=== PATIENT | male | born 2000 | race Caucasian/White ===

== ENCOUNTER 2022-12-20 14:14 | Emergency (ER) | payer OTHER, SELFPAY ==
[2022-12-20 14:15] VITALS: BP 124/74; PULSE 79; RESP 16; TEMP 37.1; O2SAT 98; BMI 18.2
--- NOTE | 2022-12-20 16:09 | EX.ED.UPPERE ---
HPI History of Present Illness Chief Complaint: Upper Extremity Injury Informant: patient Onset/Context/Timing Onset: Days (2-3) Context: Gradual Onset Timing: Continuous Quality of Pain: - (sore) Location: L middle finger Current Severity: Mild Maximum Severity: Mild Worsened by: palpation, using finger Relieved by: leaving alone Associated Symptoms Associated Symptoms: Negative for Parasthesia, Weakness or Loss of Funtion Narrative Narrative: 22-year-old healthy male ambidextrous, he bites his nails frequently. He has developed a painful swollen red area on the side of his left middle finger for which she presents here. No fevers or chills no discharge. No treatment prior to now. PFSH PFSH no medical history Home Medications cephalexin 500 mg capsule 500 mg PO Q6 #28 CAPSULES 12/20/22 [Rx Last Taken Unknown] Allergy/AdvReac Type Severity Reaction Status Date / Time No Known Allergies Allergy Unverified 09/17/19 10:15 Social History Smoking Status: Never smoker alcohol intake: never ROS ROS ED Constitutional Constitutional ED: Denies chills or fever(s) Musculoskeletal Musculoskeletal: Reports extremity pain; Denies neck pain Integumentary Denies Abrasions, rash or wounds Neurologic Neurologic: Denies paresthesias or weakness EXAM Physical Exam Const Vital Signs: 12/20/22 14:15 Temperature 98.8 F Temperature Source Temporal Pulse Rate 79 Respiratory Rate 16 Blood Pressure 124/74 H Blood Pressure Mean 90 Pulse Ox 98 Oxygen Delivery Method Room Air Positive well nourished and well developed General Appearance ED: well developed and NAD Neck full ROM and supple Back/Spine normal ROM and normal to inspection Extremity full ROM Extremity Narrative: Mildly tender paronychia at the ulnar aspect of the left middle finger. There is no involvement of the pad of the finger, nor the radial side. The fingernail is normal. Except for the fact that it has been bitten down to the beginning of the nailbed by the patient as have the rest of his nails. There is no fluctuance or abscess or pointing. Neuro oriented x3, no focal motor deficits and no sensory deficits noted Sensorium / Orientation: alert Psych mental status grossly normal and thought process normal Skin no wounds Rashes: no rashes MDM MDM MDM Narrative Medical decision making narrative: This patient has a paronychia likely from biting his nails, but it does not appear to be abscessed at this time, and I do not think performing I&D is necessarily going to be beneficial. For that reason, I am advising warm soapy soaks and I placed him on a week of cephalexin, we discussed reasons to return. Also counseled on discontinuing biting his nails. Discharge Plan Triage Chief Complaint: Upper Extremity Injury ED Provider: Migel Roldan Dx/Rx/DC Orders Clinical Impression: Paronychia of left middle finger Instructions: ED Paronychia of the Finger or Toe Prescriptions: New cephalexin [cephalexin] 500 mg capsule 500 mg PO Q6 Qty: 28 0RF Primary Care Provider: Chantal Guzman Referrals: Chantal Guzman MD [Primary Care Provider] - Doctor,Your [Non-Staff] - 1 Week if not improving Activity Restrictions/Additional Instructions: Warm/hot soapy soaks for 15 minutes at a time, twice daily at least until better. Disposition Disposition: Home, Self Care Discharge Date/Time: 12/20/22 16:18
== END 2022-12-20 16:18 | disposition home or self-care (01) ==
PROVIDERS: Emergency Provider Emergency Medicine; PCP Pediatrics; Visit Provider Emergency Medicine
DX: L03.012 Cellulitis of left finger (principal)
CPT/HCPCS: 99282

== ENCOUNTER 2024-04-22 11:17 | Emergency (ER) | payer BC, SELFPAY ==
[2024-04-22 11:17] VITALS: BP 140/78; PULSE 59; RESP 19; TEMP 35.9; O2SAT 98; BMI 16.2
--- NOTE | 2024-04-22 11:29 | CT_ITS ---
HISTORY: Abdominal pain. TECHNIQUE: Helically acquired images were obtained of the abdomen and pelvis without oral or IV contrast. A radiation dose optimization technique was used for this scan. 399 images. COMPARISON: None. FINDINGS: LOWER CHEST: Lung bases clear. BOWEL: Bowel including appendix nondilated. No focal pericolonic inflammatory change. PERITONEUM: No significant free fluid. LIVER: Unremarkable. GALLBLADDER/BILIARY TREE: Gallbladder present. SPLEEN/PANCREAS/ADRENAL GLANDS: Nonenlarged. KIDNEYS AND URETERS: No nephrolithiasis or obstructing ureteral calculus. VESSELS: Abdominal aorta nondilated. PELVIC ORGANS: Unremarkable. BONES: Intact. CT/Abdomen/Pelvis without Cont IMPRESSION: No acute abnormality identified. Electronically Signed: Lynnette Mccloud MD at 12:15 EDT ,
--- NOTE | 2024-04-22 11:30 | EDS_ITS ---
HPI <Dr. Seda Rucker MD - Last Filed: 04/22/24 16:40> History of Present Illness Chief Complaint: Abd Pain Informant: patient Onset/Context/Timing Onset: Days (3 days) Context: Sudden Onset Current Severity: Moderate Maximum Severity: Severe Narrative Narrative: Patient presents with 3 days of left mid abdominal pain. He states that right hit him rather abruptly 3 days ago and he has had continued pain with nausea, vomiting, and diarrhea. He has not noted blood associated with his vomitus or diarrhea. He denies urinary symptoms. Denies personal history of kidney stone or ulcer. No prior abdominal surgeries. [facility] <Dr. Seda Rucker MD - Last Filed: 04/22/24 16:40> [facility] Medical History no medical history no medical history Home Medications ?Medication ?Instructions ?Recorded ?Last Taken ?Type promethazine 25 mg tablet 25 mg PO TID PRN nausea and 04/22/24 Unknown Rx vomiting #14 tabs Allergy/AdvReac Type Severity Reaction Status Date / Time No Known Allergies Allergy Verified 04/22/24 11:45 Surgical History no surgical history Social History Smoking Status: Never smoker alcohol intake: never ROS <Dr. Seda Rucker MD - Last Filed: 04/22/24 16:40> ROS ED Constitutional Constitutional ED: Denies chills or fever(s) Eyes Eyes: Denies discharge from eye(s) ENT ENT ED: Denies discharge from eye(s), rhinorrhea or sore throat Cardiovascular Cardiovascular: Denies chest pain or palpitations Respiratory/Chest Respiratory/Chest: Denies cough or dyspnea Gastrointestinal Gastrointestinal: Reports abdominal pain, diarrhea, nausea and vomiting Genitourinary Genitourinary ED: Denies difficulty urinating, dysuria or hematuria Musculoskeletal Musculoskeletal: Denies back pain or extremity pain Integumentary Denies Abrasions or rash Neurologic Neurologic: Denies headache(s) or weakness Allergic/Immunologic Allergic/Immunologic ED: Denies lip swelling or urticaria EXAM <Dr. Seda Rucker MD - Last Filed: 04/22/24 16:40> Physical Exam Const Vital Signs: 04/22/24 11:17 04/22/24 13:17 04/22/24 15:03 Temperature 96.7 F L Temperature Source Temporal Pulse Rate 59 L 63 62 Respiratory Rate 19 H 18 Blood Pressure 140/78 H 107/89 H Blood Pressure Mean 98 95 Pulse Ox 98 97 Oxygen Delivery Method Room Air Room Air 04/22/24 17:00 Temperature Temperature Source Pulse Rate 65 Respiratory Rate 16 Blood Pressure 108/84 H Blood Pressure Mean 92 Pulse Ox 98 Oxygen Delivery Method Room Air Positive well nourished and well developed General Appearance ED: well developed HEENT Reports dry mucous membranes Mouth ED: Yes dry mucous membranes Mouth: dry mucous membranes Eyes EOMs intact bilaterally Chest Wall inspection of chest normal and palpation of chest normal Resp normal respiratory effort and clear to auscultation bilaterally Cardio regular rate and regular rhythm GI GI Narrative: Abdomen soft with moderate diffuse tenderness outpatient. No guarding or rebound. Hypoactive bowel sounds. Extremity normal to inspection Neuro oriented x3 Psych Mood & Affect: anxious Skin no rashes or lesions noted <Dr. Nazario Rivers DO - Last Filed: 04/22/24 19:33> Physical Exam Const Vital Signs: 04/22/24 11:17 04/22/24 13:17 04/22/24 15:03 Temperature 96.7 F L Temperature Source Temporal Pulse Rate 59 L 63 62 Respiratory Rate 19 H 18 Blood Pressure 140/78 H 107/89 H Blood Pressure Mean 98 95 Pulse Ox 98 97 Oxygen Delivery Method Room Air Room Air 04/22/24 17:00 Temperature Temperature Source Pulse Rate 65 Respiratory Rate 16 Blood Pressure 108/84 H Blood Pressure Mean 92 Pulse Ox 98 Oxygen Delivery Method Room Air MDM <Dr. Seda Rucker MD - Last Filed: 04/22/24 16:40> [facility] MDM Narrative Medical decision making narrative: IV line established. Patient given IV fluids along with morphine, Toradol, Zofran. Labwork obtained to evaluate for leukocytosis, anemia, and electrolyte derangement. Urinalysis obtained to evaluate for infection/hematuria. CT flank obtained to evaluate for potential perforated viscus, kidney stone, colitis. History & Record Review Discussion w/independent historian: Patient and Family Lab Data Attestation: I reviewed the patient's lab results. Labs: Laboratory Results - last 24 hr 04/22/24 04/22/24 11:40 13:15 WBC 10.5 RBC 5.00 Hgb 14.9 Hct 43.4 MCV 86.8 MCH 29.8 MCHC 34.3 RDW Std Deviation 41.6 RDW Coeff of Lanette 13.2 Plt Count 267 MPV 9.7 Immature Gran % (Auto) 0.400 Neut % (Auto) 82.2 H Lymph % (Auto) 11.3 L [place] % (Auto) 5.6 Eos % (Auto) 0.1 Baso % (Auto) 0.4 Absolute Neuts (auto) 8.7 H Absolute Lymphs (auto) 1.19 Nucleated RBC % 0 Sodium 137 Potassium 3.2 L Chloride 103 Carbon Dioxide 22.0 Anion Gap 12 BUN 15 Creatinine 0.99 Estim Creat Clear Calc 88.14 Est GFR (MDRD) Af Amer 121 Est GFR (MDRD) Non-Af 100 BUN/Creatinine Ratio 15.1 Glucose 107 H Calcium 9.4 Total Bilirubin 2.00 H Direct Bilirubin 0.43 H AST 16 ALT 33 Alkaline Phosphatase 67 Total Protein 7.8 Albumin 4.8 Globulin 3.0 Lipase 31 Urine Color Yellow Urine Clarity Clear Urine pH 6.5 Ur Specific Kevil 1.020 Urine Protein Negative Urine Glucose (UA) Normal Urine Ketones 150 A* Urine Occult Blood Negative Urine Nitrite Negative Urine Bilirubin Negative Urine Urobilinogen 1 H Ur Leukocyte Esterase Negative Urine RBC 0 SEEN Urine WBC 0 SEEN Ur Squamous Epith Cells 0 SEEN Urine Bacteria 0 SEEN Urine Mucus 0 SEEN Radiography Diagnostic Testing: Clinical Impression(s) from Imaging Studies Abdomen/Pelvis CT 04/22/24 11:29 IMPRESSION: No acute abnormality identified. Electronically Signed: Lynnette Mccloud MD at 12:15 EDT Reading Location ID and State: [facility] / [place] Tel , Service support , Treatment and Re-Evaluation :: CBC reveals normal white count of 10.5 with a left shift of 82% neutrophils. Hemoglobin is normal at 14.9. Chemistry studies reveal slightly low potassium at 3.2 with a glucose of 107. LFTs significant for a slightly elevated bilirubin at 2.0 with direct bilirubin at 0.43. Lipase is normal at 31. Urinalysis reveals 150 ketones with no evidence of infection or hematuria. CT of the abdomen/pelvis has been obtained and results are pending at this time. <Dr. Nazario Rivers, DO - Last Filed: 04/22/24 19:33> MDM MDM Narrative Medical decision making narrative: IV line established. Patient given IV fluids along with morphine, Toradol, Zofran. Labwork obtained to evaluate for leukocytosis, anemia, and electrolyte derangement. Urinalysis obtained to evaluate for infection/hematuria. CT flank obtained to evaluate for potential perforated viscus, kidney stone, colitis. D ue to radiology downtime patient was here for several hours waiting for CT read. Ultimately came back negative after 7 PM. He was able to pass a p.o. challenge. He states that he has Zofran at the pharmacy and never picked this up from his previous hospital visit. I will also write him for Phenergan via meds to beds and he can alternate these. He is counseled on sipping small amounts of fluids frequently. He should try clears first and advance to solids as tolerated. Return precautions were discussed. Impression: 1. Abdominal pain 2. Nausea/vomiting Lab Data Labs: Laboratory Results - last 24 hr 04/22/24 04/22/24 11:40 13:15 WBC 10.5 RBC 5.00 Hgb 14.9 Hct 43.4 MCV 86.8 MCH 29.8 MCHC 34.3 RDW Std Deviation 41.6 RDW Coeff of Lanette 13.2 Plt Count 267 MPV 9.7 Immature Gran % (Auto) 0.400 Neut % (Auto) 82.2 H Lymph % (Auto) 11.3 L [place] % (Auto) 5.6 Eos % (Auto) 0.1 Baso % (Auto) 0.4 Absolute Neuts (auto) 8.7 H Absolute Lymphs (auto) 1.19 Nucleated RBC % 0 Sodium 137 Potassium 3.2 L Chloride 103 Carbon Dioxide 22.0 Anion Gap 12 BUN 15 Creatinine 0.99 Estim Creat Clear Calc 88.14 Est GFR (MDRD) Af Amer 121 Est GFR (MDRD) Non-Af 100 BUN/Creatinine Ratio 15.1 Glucose 107 H Calcium 9.4 Total Bilirubin 2.00 H Direct Bilirubin 0.43 H AST 16 ALT 33 Alkaline Phosphatase 67 Total Protein 7.8 Albumin 4.8 Globulin 3.0 Lipase 31 Urine Color Yellow Urine Clarity Clear Urine pH 6.5 Ur Specific Kevil 1.020 Urine Protein Negative Urine Glucose (UA) Normal Urine Ketones 150 A* Urine Occult Blood Negative Urine Nitrite Negative Urine Bilirubin Negative Urine Urobilinogen 1 H Ur Leukocyte Esterase Negative Urine RBC 0 SEEN Urine WBC 0 SEEN Ur Squamous Epith Cells 0 SEEN Urine Bacteria 0 SEEN Urine Mucus 0 SEEN Radiography Diagnostic Testing: Clinical Impression(s) from Imaging Studies Abdomen/Pelvis CT 04/22/24 11:29 IMPRESSION: No acute abnormality identified. Electronically Signed: Lynnette Mccloud MD at 12:15 EDT Reading Location ID and State: [facility] / [place] Tel , Service support , Discharge Plan Triage Chief Complaint: Abd Pain ED Provider: Seda Rucker Dx/Rx/DC Orders Instructions: ED Diet Vomiting Diarrhea, ED Abdominal Pain Unkn Cause Male... Prescriptions: New promethazine 25 mg tablet 25 mg PO TID PRN (Reason: nausea and vomiting) Qty: 14 0RF Primary Care Provider: Care Physician,No Primary Referrals: Chantal Guzman MD [Non-Staff] - Print Language: Moroccan Disposition Disposition: Home, Self Care
[2024-04-22] MEDS: Ondansetron 4 MG/2 ML Vial IV (11:42)
[2024-04-22] MEDS: Ketorolac 15 MG/ML Vial IV (11:43)
[2024-04-22 11:45] LABS: Absolute Lymphocyte Count 1.19 X10^3/uL (0.83-4.51); Absolute Neutrophil Count 8.7 X10^3/uL (2.0-7.7); Basophil# 0.04 X10^3/uL; Basophil% 0.4 % (0-1); Eosinophil# 0.01 X10^3/uL; Eosinophils% 0.1 % (0-5); Hematocrit 43.4 % (40-54); Hemoglobin 14.9 g/dL (13.0-16.5); Lymphocyte # 1.19 X10^3/ul (0.83-4.51); Lymphocyte % 11.3 % (19-41); Mean Corp Hgb Conc 34.3 g/dL (32-36); Mean Corpuscular Hgb 29.8 pg (27.0-32.0); Mean Corpuscular Volume 86.8 fL (80-94); Mean Platelet Vol. 9.7 fl (6.2-12.0); Monocyte# 0.59 X10^3/uL; Monocyte% 5.6 % (0-10); NRBC Flagged by Analyzer 0 % (0-5); Neutrophil # 8.66 X10^3/uL (2.7-7.7); Neutrophil % 82.2 % (47-70); Platelet Count 267 K/mm3 (150-450); RBC Distribution Width CV 13.2 % (11.6-14.6); RBC Distribution Width SD 41.6 fl (35.1-43.9); White Blood Count 10.5 K/mm3 (4.4-11.0)
[2024-04-22] MEDS: 0.9% Normal Saline (1000mL) 1,000 ML 1000 ML IV (11:50)
[2024-04-22 12:01] LABS: AST(SGOT) 16 U/L (15-37); Alanine Aminotransfer ALT/SGPT 33 U/L (16-61); Albumin, Serum 4.8 g/dL (3.2-5.0); Alkaline Phosphatase 67 U/L (45-117); Anion Gap 12 (5-15); BUN 15 mg/dL (7-18); BUN/Creat Ratio 15.1 RATIO (10-20); Bilirubin, Direct 0.43 mg/dL (0.00-0.30); Calcium,Total 9.4 mg/dL (8.5-10.1); Chloride 103 mmol/L (98-107); Creatinine, Serum 0.99 mg/dL (0.70-1.30); EST Glomerular Filtration Rate 100 mL/min (>60); Est Glom Filt Rate - Afr Amer 121 mL/min (>60); Estimated Creatinine Clearance 88.14 ml/min; Glucose 107 mg/dL (74-106); Lipase 31 U/L (13-75); Potassium 3.2 mmol/L (3.5-5.1); Protein, Total 7.8 g/dL (6.4-8.2); Sodium Level 137 mmol/L (136-145)
[2024-04-22] MEDS: 0.9% Normal Saline (1000mL) 1,000 ML 150 ML IV (12:50)
[2024-04-22 13:17] VITALS: BP 107/89; PULSE 63; RESP 18; O2SAT 97
[2024-04-22 13:21] LABS: Bacteria 0 SEEN /hpf (None Seen); Mucous, Urine 0 SEEN /hpf (<or=2+); Red Blood Cells-Urine 0 SEEN /hpf (0-5); Squamous Epithelial Cells - UA 0 SEEN /hpf (0-5); White Blood Cells 0 SEEN /hpf (0-5)
[2024-04-22 13:24] LABS: Color, Urine Yellow (Yellow); Glucose, Dipstick Normal (Normal); Leukocyte Esterase-Dipstick Negative /ul (Negative); Nitrite-Dipstick Negative (Negative); Occult Blood-Urine Negative /ul (Negative); Protein-Dipstick Negative (Negative); Urine Bilirubin Dipstick Negative (Negative); Urine Clarity Clear (Clear); Urine Urobilinogen 1 mg/dl (Normal); Urine pH 6.5 (5.0 - 8.0)
[2024-04-22 13:27] LABS: Ketone-Dipstick 150 mg/dl (Negative)
[2024-04-22 15:03] VITALS: PULSE 62
[2024-04-22 17:00] VITALS: BP 108/84; PULSE 65; RESP 16; O2SAT 98
[2024-04-22] MEDS: Ondansetron 4 MG/2 ML Vial IM (18:07)
[2024-04-22 19:00] VITALS: BP 114/69; PULSE 51; RESP 12; O2SAT 99
[2024-04-22 20:35] VITALS: BP 114/69; PULSE 56; RESP 18; TEMP 36.8; O2SAT 98
== END 2024-04-22 20:37 | disposition home or self-care (01) ==
PROVIDERS: Emergency Provider Emergency Medicine; Visit Provider Emergency Medicine
DX: R10.9 Unspecified abdominal pain (principal); R11.2 Nausea with vomiting, unspecified
CPT/HCPCS: 74176; 80048; 80076; 81001; 83690; 85025; 96361; 96372; 96374; 96375; 99284; J7030; A4216; J2405

== ENCOUNTER 2024-10-02 23:56 | Emergency (ER) | payer OTHER, SELFPAY ==
[2024-10-02 23:56] VITALS: BP 139/93; PULSE 75; RESP 18; TEMP 36.6; O2SAT 100; BMI 18.1
[2024-10-03] MEDS: Ondansetron 4 MG/2 ML Vial IV (00:45)
[2024-10-03] MEDS: 0.9% Normal Saline (1000mL) 1,000 ML 999 ML IV (00:45)
[2024-10-03 01:09] LABS: Absolute Lymphocyte Count 0.64 X10^3/uL (0.83-4.51); Absolute Neutrophil Count 13.3 X10^3/uL (2.0-7.7); Basophil# 0.02 X10^3/uL; Basophil% 0.1 % (0-1); Hematocrit 43.9 % (40-54); Hemoglobin 15.3 g/dL (13.0-16.5); Lymphocyte # 0.64 X10^3/ul (0.83-4.51); Lymphocyte % 4.4 % (19-41); Mean Corp Hgb Conc 34.9 g/dL (32-36); Mean Corpuscular Hgb 29.2 pg (27.0-32.0); Mean Corpuscular Volume 83.8 fL (80-94); Mean Platelet Vol. 9.8 fl (6.2-12.0); Monocyte# 0.38 X10^3/uL; Monocyte% 2.6 % (0-10); NRBC Flagged by Analyzer 0 % (0-5); Neutrophil % 92.4 % (47-70); Platelet Count 319 K/mm3 (150-450); RBC Distribution Width CV 12.9 % (11.6-14.6); RBC Distribution Width SD 39.3 fl (35.1-43.9); Red Blood Count 5.24 M/mm3 (4.6-6.2); White Blood Count 14.4 K/mm3 (4.4-11.0)
[2024-10-03 01:26] LABS: AST(SGOT) 13 U/L (15-37); Alanine Aminotransfer ALT/SGPT 20 U/L (16-61); Albumin, Serum 5.3 g/dL (3.2-5.0); Alkaline Phosphatase 83 U/L (45-117); Anion Gap 14 (5-15); BUN 17 mg/dL (7-18); BUN/Creat Ratio 18.2 RATIO (10-20); Calcium,Total 10.5 mg/dL (8.5-10.1); Chloride 98 mmol/L (98-107); Creatinine, Serum 0.94 mg/dL (0.70-1.30); EST Glomerular Filtration Rate 107 mL/min (>60); Est Glom Filt Rate - Afr Amer 129 mL/min (>60); Estimated Creatinine Clearance 103.22 ml/min; Globulin 3.8 g/dL (2.2-4.2); Glucose 83 mg/dL (74-106); Lipase 19 U/L (13-75); Potassium 4.4 mmol/L (3.5-5.1); Protein, Total 9.1 g/dL (6.4-8.2); Sodium Level 133 mmol/L (136-145)
[2024-10-03 01:56] VITALS: BP 124/76; PULSE 66; RESP 16; TEMP 36.6; O2SAT 100
[2024-10-05 17:07] LABS: Lead, Blood Adult 16+yrs 4.7 ug/dL (0.0-3.4)
== END 2024-10-03 02:44 | disposition home or self-care (01) ==
PROVIDERS: Emergency Provider Emergency Medicine; Visit Provider Emergency Medicine
DX: R10.13 Epigastric pain (principal); R10.11 Right upper quadrant pain; R11.2 Nausea with vomiting, unspecified
CPT/HCPCS: 74177; 80048; 80076; 83655; 83690; 85025; 96361; 96374; 99283; J7030; Q9967; A4216; J2405

== ENCOUNTER → 2024-10-09 | Outpatient (CLI) | payer OTHER, SELFPAY ==
--- NOTE | 2024-10-09 08:28 | US_ITS ---
INDICATION: Right upper quadrant abdominal pain EXAMINATION: Ultrasound US Abdomen Limited (quadrant) TECHNIQUE: Araya scale and color doppler imaging was performed of the right upper quadrant. COMPARISON: CT dated October 03, 2024 FINDINGS: LIVER: There is normal echotexture. No focal hepatic lesion. There is no free fluid. GALLBLADDER AND BILIARY TREE: No shadowing gallstone, pericholecystic fluid or gallbladder wall thickening is demonstrated. The proximal common bile duct measures 1.5 mm, which is within normal limits for the patient''s age. Songraphic Carbajal''s sign: Negative. PANCREAS: No focal abnormality is demonstrated in the pancreas. No pancreatic ductal dilatation. The right kidney measures 9.4 cm in length and is within normal limits. US/Gallbladder IMPRESSION: No acute sonographic abnormality is demonstrated in the right upper quadrant. Electronically Signed: Layla Baron MD at 8:06 EST ,
== END | disposition home or self-care (01) ==
LOC: US 08:20
PROVIDERS: Referring Provider Emergency Medicine; Visit Provider Emergency Medicine
DX: R10.11 Right upper quadrant pain (principal)
CPT/HCPCS: 76705

== ENCOUNTER 2024-11-03 22:06 | Emergency (ER) | payer OTHER, SELFPAY ==
[2024-11-03 22:07] VITALS: BP 132/80; PULSE 63; RESP 19; TEMP 36.7; O2SAT 100; BMI 15.8
--- NOTE | 2024-11-03 22:12 | EX.ED.DYSGE1 ---
HPI History of Present Illness Chief Complaint: Abd Pain [facility] Home Medications ?Medication ?Instructions ?Recorded ?Last Taken ?Type promethazine 25 mg tablet 25 mg PO TID PRN nausea and 04/22/24 Unknown Rx vomiting #14 tabs ferrous sulfate 1 tab PO DAILY 10/03/24 Unknown History ondansetron 4 mg disintegrating 4 mg PO TID PRN nausea and 10/03/24 Unknown Rx tablet vomiting #21 tabs metoclopramide HCl 5 mg tablet 5 mg PO Q8H PRN PRN nausea and 11/03/24 Unknown Rx (Reglan) vomiting #20 tabs Allergy/AdvReac Type Severity Reaction Status Date / Time No Known Allergies Allergy Verified 11/03/24 22:07 Social History Smoking Status: Never smoker alcohol intake: never EXAM Physical Exam Const Vital Signs: 11/03/24 22:07 Temperature 98.0 F Temperature Source Oral Pulse Rate 63 Respiratory Rate 19 H Blood Pressure 132/80 H Blood Pressure Mean 97 Pulse Ox 100 Oxygen Delivery Method Room Air [facility] MDM MDM Narrative Medical decision making narrative: HISTORY OF PRESENT ILLNESS: 24-year-old male with abdominal pain nausea vomiting for 1 day. Noted recent gallbladder ultrasound but does not know the results. He further states he has had abdominal pain and intractable nausea vomiting for the past day. He feels pain in the mid abdomen. He states is not worse with food. Denies history abdominal surgeries. No diarrhea. No melena or hematochezia. No hematemesis. Notes he smokes marijuana. Notes he recently decreased his use of marijuana. Denies alcohol use. Denies fever. Denies chest pain or shortness of breath. REVIEW OF SYSTEMS: Pertinent positives: Abdominal pain, nausea vomiting Pertinent negatives: As per HPI PHYSICAL EXAM: Nursing triage notes reviewed, Vital signs reviewed Constitutional: please see mdm HENT: MMM Eyes: Pupils equal round and reactive to light, Extraocular muscles intact Neck: No stridor, no JVD, full neck ROM Lungs: Clear to auscultation, No wheezing or rales. No increased work of breathing, no conversational dyspnea, no accessory muscle use, no nasal flaring. No respiratory distress noted Heart: Regular rate and rhythm, No murmurs, No rubs and No gallops, 2+ distal pulses (radial, femoral, posterior tibial) in all extremities Abdomen: Soft, minimal tenderness to palpation diffusely throughout the abdomen, no rigidity, rebound or guarding, no obvious peritoneal signs, no palpable pulsatile abdominal masses, no auscultated abdominal bruit : No CVAT Extremities: No edema Neuro: No new focal neurological deficits, cranial nerves II through XII intact, 5/5 strength in all present extremities. Intact sensation to light touch in all present extremities, 2+ reflexes bilateral patella tendons. Skin: No rash or lesions noted MEDICAL DECISION MAKING: Chief Complaint: Abdominal pain, nausea vomiting External records reviewed: Reviewed prior imaging studies reviewed recent ultrasound of the patient's gallbladder from 10/09/2024 which showed no acute sonographic abnormality in the right upper quadrant. Reviewed CT scan abdomen pelvis from October 03, 2024 showed normal appendix and no other acute disease. Factors affecting care: Chronic nausea and vomit Social determinants of health: Marijuana use History obtained from others: Family Consults: none MDM Narrative: The patient was hemodynamically stable, afebrile and nontoxic-appearing. Abdominal exam was benign. Is not consistent with a perforation obstruction is not consistent with acute appendicitis Will consider obtaining advanced imaging of the abdomen including a CT scan ultrasound without these tests were not indicated given the benign nature of the patient's abdominal exam. I considered the following differential diagnosis: Cannabinol hyperemesis syndrome, dehydration, electrolyte disturbance, acute pancreatitis, hepatobiliary obstruction, perforation, obstruction I obtained a broad lab and imaging workup to further elucidate etiology of the patient's complaints Resuscitate the patient 1 L normal saline, 20 mg IV Pepcid and 4 mg IV Zofran ALL IMAGES (IF OBTAINED) HAVE BEEN PERSONALLY REVIEWED AND INTERPRETED BY MYSELF. CBC with leukocytosis which represents systemic inflammation however this is downtrending from priorno anemia, , no thrombocytopenia BMP with mild hypokalemia suggestive of mild dehydration, no sign of metabolic acidosis or elevated anion gap, no SIENNA No evidence of acute hepatobiliary pathology. Noted hyperbilirubinemia which is stable from baseline. No other issues with hepatobiliary pathology noted Lipase is wnl indicating no pancreatic inflammation. On reevaluation the patient felt more comfortable. Is able tolerate p.o. His repeat abdominal exam was benign. He is likely suffering from A hyperemesis syndrome. I encouraged him to stop smoking marijuana. I encouraged her to follow with gastroenterology. The patient and/or family, caregivers express understanding. The patient and/or family, caregivers agrees with the plan. Shared decision making: I will have a discussion with the patient and or visitors regarding risk/benefits of further testing or admission. They will be made aware of of the risk/benefits inherent in this decision they will be given the opportunity to voice understanding. Total critical care time today provided was at least 0 minutes. This excludes separately billable procedures. Critical care time (if documented) is secondary to the patient having high probability of clinically significant/life threatening deterioration in the patient's condition which required my urgent intervention. Impression: 1. Acute abdominal pain 2. Nausea vomiting 3. Cannaboid hyperemesis syndrome Dispo: Discharge home This note was generated with [employer] dictation software. It may contain incorrect words, spelling, and punctuation that were not noted in review of the chart prior to signing. Lab Data Labs: Laboratory Results - last 24 hr 11/03/24 22:20 WBC 14.1 H RBC 5.16 Hgb 15.3 Hct 44.3 MCV 85.9 MCH 29.7 MCHC 34.5 RDW Std Deviation 43.4 RDW Coeff of Lanette 13.7 Plt Count 332 MPV 9.8 Immature Gran % (Auto) 0.400 Neut % (Auto) 87.5 H Lymph % (Auto) 6.0 L [place] % (Auto) 6.0 Eos % (Auto) 0.0 Baso % (Auto) 0.1 Absolute Neuts (auto) 12.3 H Absolute Lymphs (auto) 0.84 Nucleated RBC % 0 Sodium 139 Potassium 3.3 L Chloride 104 Carbon Dioxide 24.0 Anion Gap 11 BUN 12 Creatinine 0.97 Estim Creat Clear Calc 87.21 Est GFR (MDRD) Af Amer 125 Est GFR (MDRD) Non-Af 103 BUN/Creatinine Ratio 12.4 Glucose 121 H Calcium 10.2 H Total Bilirubin 1.90 H AST 12 L ALT 21 Alkaline Phosphatase 81 Total Protein 8.7 H Albumin 5.3 H Globulin 3.4 Albumin/Globulin Ratio 1.6 Lipase 14 Discharge Plan Triage Chief Complaint: Abd Pain ED Provider: Mason Rider Dx/Rx/DC Orders Instructions: ED Vomiting (Adult) Prescriptions: New metoclopramide HCl [Reglan] 5 mg tablet 5 mg PO Q8H PRN PRN (Reason: nausea and vomiting) Qty: 20 0RF No Action ferrous sulfate [Iron (ferrous sulfate)] 1 tab PO DAILY Patient Comments: STARTED 09/28/2024 OR 09/29/2024 ondansetron 4 mg tablet,disintegrating 4 mg PO TID PRN (Reason: nausea and vomiting) Qty: 21 0RF promethazine 25 mg tablet 25 mg PO TID PRN (Reason: nausea and vomiting) Qty: 14 0RF Primary Care Provider: Care Physician,No Primary Referrals: Guilherme Hall DO [Med Staff - Active Staff] - Activity Restrictions/Additional Instructions: Thank you for trusting us with your care today! Your labs and exam were not consistent with a life-threatening emergency. I suspect you are suffering from excessive nausea and vomiting from THC use. There are also other etiologies (IBS, gastroparesis, ulcerative colitis etc.) that may cause similar symptoms. These pathologies were diagnosed by a Critical Care Physician. Please take Reglan as needed for nausea vomiting control. Please take Tylenol (2 pills, 650 mg), ibuprofen (2 pills, 400 mg) every 6 hours as needed for pain and fever control. Please return to the emergency department if your symptoms change or worsen. Please follow with your Gastroenterology (Dr. Hall) for further outpatient evaluation and management. Print Language: British Disposition Disposition: Home, Self Care Discharge Date/Time: 11/03/24 23:57
[2024-11-03 22:33] LABS: Absolute Lymphocyte Count 0.84 X10^3/uL (0.83-4.51); Absolute Neutrophil Count 12.3 X10^3/uL (2.0-7.7); Basophil# 0.01 X10^3/uL; Basophil% 0.1 % (0-1); Hematocrit 44.3 % (40-54); Hemoglobin 15.3 g/dL (13.0-16.5); Lymphocyte # 0.84 X10^3/ul (0.83-4.51); Mean Corp Hgb Conc 34.5 g/dL (32-36); Mean Corpuscular Hgb 29.7 pg (27.0-32.0); Mean Corpuscular Volume 85.9 fL (80-94); Mean Platelet Vol. 9.8 fl (6.2-12.0); Monocyte# 0.85 X10^3/uL; NRBC Flagged by Analyzer 0 % (0-5); Neutrophil # 12.32 X10^3/uL (2.7-7.7); Neutrophil % 87.5 % (47-70); Platelet Count 332 K/mm3 (150-450); RBC Distribution Width CV 13.7 % (11.6-14.6); RBC Distribution Width SD 43.4 fl (35.1-43.9); Red Blood Count 5.16 M/mm3 (4.6-6.2); White Blood Count 14.1 K/mm3 (4.4-11.0)
[2024-11-03] MEDS: Ondansetron 4 MG/2 ML Vial IV (22:49)
[2024-11-03] MEDS: Famotidine 200 MG/20 ML MDV 20 MG in 0.9% Normal Saline (Pres. free 8 ML 300 MG IV (22:49)
[2024-11-03] MEDS: 0.9% Normal Saline (1000mL) 1,000 ML 999 ML IV (22:49)
[2024-11-03 22:54] LABS: ALB/GLOB Ratio 1.6 RATIO (0.9-2.4); AST(SGOT) 12 U/L (15-37); Alanine Aminotransfer ALT/SGPT 21 U/L (16-61); Albumin, Serum 5.3 g/dL (3.2-5.0); Alkaline Phosphatase 81 U/L (45-117); Anion Gap 11 (5-15); BUN 12 mg/dL (7-18); BUN/Creat Ratio 12.4 RATIO (10-20); Calcium,Total 10.2 mg/dL (8.5-10.1); Chloride 104 mmol/L (98-107); Creatinine, Serum 0.97 mg/dL (0.70-1.30); EST Glomerular Filtration Rate 103 mL/min (>60); Est Glom Filt Rate - Afr Amer 125 mL/min (>60); Estimated Creatinine Clearance 87.21 ml/min; Globulin 3.4 g/dL (2.2-4.2); Glucose 121 mg/dL (74-106); Lipase 14 U/L (13-75); Potassium 3.3 mmol/L (3.5-5.1); Protein, Total 8.7 g/dL (6.4-8.2); Sodium Level 139 mmol/L (136-145)
[2024-11-03 23:54] VITALS: BP 124/0; PULSE 68; RESP 19; TEMP 36.7; O2SAT 100
== END 2024-11-03 23:57 | disposition home or self-care (01) ==
PROVIDERS: Emergency Provider Emergency Medicine; Visit Provider Emergency Medicine
DX: R10.9 Unspecified abdominal pain (principal); R11.2 Nausea with vomiting, unspecified; F12.90 Cannabis use, unspecified, uncomplicated
CPT/HCPCS: 80053; 83690; 85025; 96361; 96374; 96375; 99283; A4216; J2405

== ENCOUNTER 2025-01-29 07:03 | Day surgery (SDC) | payer BC, SELFPAY ==
[2025-01-29] VITALS (10 sets, daily range): BP systolic 82–107; BP diastolic 48–64; PULSE 52–67; RESP 12–20; TEMP 36.4–36.6; O2SAT 95–100; BMI 17.5
--- NOTE | 2025-01-29 07:33 | PCM.PRE.AN2 ---
ASA Classification* ASA Classification ASA Classification: 2 Assessment & Plan Anesthesia* Anesthesia Assessment Anesthesia Assessment: Discussed sedation and/or anesthesia options, risks, benefits, and alternatives with patient/parents/legal guardian/POA. Questions invited. The patient/parents/legal guardian/POA seems to understand and agrees to proceed with anesthesia plan. Reviewed the physical assessment, medical history, allergy history and patient home medications list prior to surgery/procedure/anesthetic and documented any changes. Performed airway and anesthesia risk assessments. Anesthesia Type Anesthesia Type: MAC Anesthesia Focused Assessment* Temperature: 97.7 F Pulse Rate: 67 Blood Pressure: 107/64 Respiratory Rate: 14 Pulse Ox: 100 Airway Assessment Mouth opens: >3 cm Mallampati Score: II Focused Labs Anesthesia Preop lab: CBC WBC 14.1 K/mm3 (4.4-11.0) H 11/03/24 22:20 11/03/24 RBC 5.16 M/mm3 (4.6-6.2) 11/03/24 22:20 11/03/24 Hgb 15.3 g/dL (13.0-16.5) 11/03/24 22:20 11/03/24 Hct 44.3 % (40-54) 11/03/24 22:20 11/03/24 Plt Count 332 K/mm3 (150-450) 11/03/24 22:20 11/03/24 CHEMISTRY Potassium 3.3 mmol/L (3.5-5.1) L 11/03/24 22:20 11/03/24 Sodium 139 mmol/L (136-145) 11/03/24 22:20 11/03/24 BUN 12 mg/dL (7-18) 11/03/24 22:20 11/03/24 Creatinine 0.97 mg/dL (0.70-1.30) 11/03/24 22:20 11/03/24 Glucose 121 mg/dL (74-106) H 11/03/24 22:20 11/03/24 TSH 2.00 uIU/mL (0.358-3.74) 07/23/13 13:47 07/23/13 COAG Pre-Assessment Diagnosis/Proposed Procedure Planned Operative Procedure(s): EGD Anesthesia History Anesthesia History - insurance and financial services agent: Anesthesia History - insurance and financial services agent Hx Hospitalization No 01/27/25 09:01 Any Problems With Anesthesia No 01/27/25 09:01 Cholinesterase deficiency No 01/27/25 09:01 You/Your Family Experience No 01/27/25 09:01 fever (hyperthermia) with Relationship Recent Exposure to Contagious No 01/29/25 07:22 Disease Does patient have nerve No 01/27/25 09:01 stimulator Patient instructed to have device shut off --Does patient have Pacemaker No 01/29/25 07:22 or ICD? When Was Last Pacemaker Check QUESTION #4 FULL TEXT: You/Your Family Experience fever (hyperthermia) with Anesthesia Last Oral Intake Last Oral intake: Last Oral Intake NPO since 23:00 01/29/25 07:22 Meds taken in AM with sips of No 01/29/25 07:22 water? Meds patient instructed to take am of surgery PONV PONV - insurance and financial services agent: PONV - insurance and financial services agent Female No 01/27/25 09:01 HX of Motion Sickness Yes 01/27/25 09:01 HX of N/V After Surgery No 01/27/25 09:01 Non-Smoker No 01/27/25 09:01 Duration of Surgery greater No 01/27/25 09:01 than 60 minutes Number of Risk Factors 1 01/27/25 09:01 PONV Score Low Risk 01/27/25 09:01 Height & Weight Height & Weight: Anesthesia: Height & Weight Height 5 ft 11 in 01/29/25 07:22 Weight: 57 kg 01/29/25 07:22 Body Mass Index (BMI) 17.5 01/29/25 07:22 Respiratory Assessment Respiratory Assessment - insurance and financial services agent: Respiratory Tract Infection Hx - insurance and financial services agent Hx Respiratory Tract Infection No 01/27/25 09:01 STOP Sleep Apnea STOP Sleep Apnea - insurance and financial services agent: STOP Sleep Apnea - insurance and financial services agent Hx Hypertension No 01/27/25 09:01 Hx Sleep Apnea No 01/27/25 09:01 CPAP BIPAP Do you snore loudly (louder No 01/27/25 09:01 than talking or can be heard Do you often feel tired/ No 01/27/25 09:01 fatigued/ sleepy during daytime? Has anyone observed you stop No 01/27/25 09:01 breathing during sleep? STOP Results Negative 01/27/25 09:01 QUESTION #5 FULL TEXT : Do you snore loudly (louder than talking or can be heard through closed doors)? Tobacco Use History Tobacco Use History - insurance and financial services agent: Tobacco Use History - insurance and financial services agent Tobacco Use Smoking Status Current every day smoker 01/27/25 09:01 Hx Tobacco Use Yes 01/27/25 09:01 Years Smoking Packs Smoked per Day Smoking Cessation Date was within the last 15 years Hx Smoking Cessation Date Hx Smoking Cessation Counseling Hematologic Medial History Hematologic Hx - insurance and financial services agent: Hematologic Medical Hx - vice president of academic affairs Hx of Blood Transfusion No 01/27/25 09:01 Hx of Transfusion in last 3 No 01/27/25 09:01 Months Date of Last Transfusion (if within last 3 months) Ever experience any problems No 01/27/25 09:01 with transfusion(s)? Specify any problems Hx of Preganancy in last 3 N/A 01/27/25 09:01 Months Nurse Filling Out Transfusion VLEHMAN 01/27/25 09:01 & Questions: Date: 01/27/25 01/27/25 09:01 Time: 09:08 01/27/25 09:01 Patient unable to answer at this time (ie. confused, unrespo /Reproduction History /Reproductive History - insurance and financial services agent: /Reproductive Hx- insurance and financial services agent Hx Now No 01/27/25 09:01 Gestational Age (in weeks): EDC: Hx Hx Para Hx Section SAB PFSH Medical History Wears glasses Anxiety Marijuana use Restless legs Smoker Home Medications ?Medication ?Instructions ?Recorded ?Last Taken ?Type promethazine 25 mg tablet 25 mg PO TID PRN nausea and 04/22/24 Unknown Rx vomiting #14 tabs ondansetron 4 mg disintegrating 4 mg PO TID PRN nausea and 10/03/24 Unknown Rx tablet vomiting #21 tabs metoclopramide HCl 5 mg tablet 5 mg PO Q8H PRN PRN nausea and 11/03/24 Unknown Rx (Reglan) vomiting #20 tabs pantoprazole 40 mg tablet,delayed 40 mg PO QDAY #90 tabs 11/08/24 Unknown Rx release Allergy/AdvReac Type Severity Reaction Status Date / Time No Known Allergies Allergy Verified 01/29/25 07:21 Surgical History No history of previous surgery Social History Smoking Status: Current every day smoker tobacco type: e-cigarettes alcohol intake: never Review of Systems (Anesthesia) ROS Narrative System reviewed and no additional complaints, except as documented.
--- NOTE | 2025-01-29 08:10 | HP.PCM_ITS ---
HPI - General General Date of Admission: 01/29/25 Date of Service: 01/29/25 Chief Complaint: abdominal pain with nausea HPI Narrative BLANCHE ADAIR, is a 24 M who presents with abdominal pain with nausea Since January of 2024 pt has had 3-4 episodes of epigastric pain and nausea lasting 3 days typically. During these flares he is unable to eat due to nausea. He will make himself vomit to feel better. in between he feels fine. Most recently he had an episode after drinking alcohol on an empty stomach and presented to the ED. Work up was without abnormality. He loses weight during the flares and already struggles to maintain his weight at 125 lbs. He has never had an EGD to assess his upper GI tract. He does not take any medications fo heartburn. He does admit to smoking marijuana since age 14 daily. He has not smoked in [address] abd/pelvis 10.03.24 Normal appendix. No other acute disease. Gallbladder US 10.09.24; Normal appendix. No other acute disease. COUNT INCLUDES THE [facility] Medical History Wears glasses Anxiety Marijuana use Restless legs Smoker Home Medications ?Medication ?Instructions ?Recorded ?Last Taken ?Type promethazine 25 mg tablet 25 mg PO TID PRN nausea and 04/22/24 Unknown Rx vomiting #14 tabs ondansetron 4 mg disintegrating 4 mg PO TID PRN nausea and 10/03/24 Unknown Rx tablet vomiting #21 tabs metoclopramide HCl 5 mg tablet 5 mg PO Q8H PRN PRN stef sea and 11/03/24 Unknown Rx (Reglan) vomiting #20 tabs pantoprazole 40 mg tablet,delayed 40 mg PO QDAY #90 ta bs 11/08/24 Unknown Rx release Allergy/AdvReac Type Severity Reaction Status Date / Time No Known Allergies Allergy Verified 01/29/25 07:21 Surgical History No history of previous surgery Social History Smoking Status: Current every day smoker tobacco type: e-cigarettes alcohol intake: never ROS Constitutional Constitutional: Denies fatigue, fever(s), poor appetite, weight gain or weight loss Gastrointestinal Gastrointestinal: Denies belching, bloating, change in bowel habits, change in stool character, chewing difficulty, coffee ground emesis, constipation, cramping, diarrhea, dyspepsia, dysphagia, early satiety, excessive flatus, fecal incontinence, heartburn, hematemesis, hematochezia, hemorrhoids, loose stools, melena, nausea, odynophagia, rectal bleeding, tenesmus, vomiting or weight ch anges Vital Signs Vital Signs Vital Signs: 01/29/25 07:22 01/29/25 07:22 01/29/25 07:34 Temperature 97.7 F L 97.7 F L Temperature Source Temporal Pulse Rate 67 67 Respiratory Rate 14 14 Respiratory Pattern Normal Blood Pressure 107/64 107/64 Blood Pressure Mean 78 Blood Pressure Source Monitor Blood Pressure Position Semi-Fowlers Blood Pressure Location Left Arm Pulse Ox 100 100 Oxygen Delivery Method Room Air Weight Weight: 125 lb 10.616 oz Body Mass Index (BMI) 17.5 Physical Exam Const alert, oriented x3, no apparent distress and healthy appearing General Appearance: cooperative GI normal to inspection, nondistended, normoactive bowel sounds, soft to palpation, non-tender and non-distended Percussion: normal to percussion Rectal Exam: deferred Assessment & Plan Assessment/Plan (1) Epigastric abdominal pain: PLAN: Assessment and Plan Assessment and Plan (1) Abdominal symptoms: (2) Nausea & vomiting: Status: Inactive Plan: This is a 24 yo male pt here today for episodes of n/v and epigastric pain since January 2024. He has been seen in the ED on numerous occasions for these symptoms with normal work up. He struggles to maintain his weight and has been losing weight when he has these flares. I have concern for marijuana hyperemesis syn drome, gastritis, or esophagitis. He will undergo EGD to assess his upper GI tract. I will start him on pantoprazole 40 mg daily and metoclopramide 5mg PRN. I encouraged continued cessation of marijuana use. He is agreeable to this plan. -EGD -Pantoprazole 40 mg daily -reglan PRN -marijuana cessation (3) Epigastric abdominal pain: Status: Acute Medications: New pantoprazole 40 mg PO QDAY 90 tabs 3RF
--- NOTE | 2025-01-29 08:15 | EGD_PTH ---
PATIENT: BLANCHE ADAIR LOC: EN U#:[id number] AGE/SX: 24/M ROOM: RE01/29/[address]: Dr. Guilherme Hall DO : 2000 BED: DIS: 01/29/2025 SPEC #: [id number] RECD: 01/29/25 09:18 STATUS: DARIO MARY #: [id number] ISAURO: 01/29/25 08:[address]: Guilherme Hall DEPT: SURGICAL PATHOLOGY RECD BY: Tammy Dailey ENTERED: 01/29/25 09:54 SP TYPE: EGD BIOPSY OT DR: Yuridia Primary Care Phys Tissues: Esophagus, NOS Procedures: Surgery Specimen Level IV HEADER OPERATION: EGD PRE-OP DIAGNOSIS: Epigastric abdominal pain TISSUE SUBMITTED: Distal esophagus biopsy MICROSCOPIC DIAGNOSIS Distal esophagus, biopsy: * Cardio-oxyntic mucosa with reactive changes, negative for goblet cell metaplasia. * Scant benign squamous mucosa. * Negative for dysplasia. MICROSCOPIC DESCRIPTION Slides are reviewed. GROSS DESCRIPTION Received in fixative is one container labeled with the patient's name and designated Distal esophagus biopsy. The specimen consists of two irregular fragments of light mccormick soft tissue that in aggregate measure 0.6 x 0.3 x 0.1 cm. The specimen is totally submitted in one cassette. MS/mr 01/29/2025 CPT:04988
--- NOTE | 2025-01-29 08:35 | OP.EGD_ITS ---
Patient Name: Khurram Rowan Procedure Date: 01/29/2025 8:16 AM Date of : 2000 Age: 24 Procedure: Upper GI endoscopy Indications: Epigastric abdominal pain, Functional Dyspepsia Providers: Guilherme Hall DO Referring MD: Guilherme Hall DO Medicines: Monitored Anesthesia Care Patient Profile: This is a 24 year old male. Refer to note in patient chart for documentation of history and physical. Patient has symptoms of chronic abdominal cramping, chronic abdominal distention, chronic chest pain, chronic nausea and chronic vomiting. Complications: No immediate complications. Procedure: Pre-Anesthesia Assessment: - Prior to the procedure, a History and Physical was performed, and patient medications and allergies were reviewed. The patient is competent. The risks and benefits of the procedure and the sedation options and risks were discussed with the patient. All questions were answered and informed consent was obtained. Patient identification and proposed procedure were verified by the physician in the pre-procedure area. Mental Status Examination: alert and oriented. Airway Examination: normal oropharyngeal airway and neck mobility. Respiratory Examination: clear to auscultation. CV Examination: normal. Prophylactic Antibiotics: The patient does not require prophylactic antibiotics. Prior Anticoagulants: The patient has taken no anticoagulant or antiplatelet agents except for NSAID medication. ASA Grade Assessment: II - A patient with mild systemic disease. After reviewing the risks and benefits, the patient was deemed in satisfactory condition to undergo the procedure. The anesthesia plan was to use monitored anesthesia care (MAC). Immediately prior to administration of medications, the patient was re-assessed for adequacy to receive sedatives. The heart rate, respiratory rate, oxygen saturations, blood pressure, adequacy of pulmonary ventilation, and response to care were monitored throughout the procedure. The physical status of the patient was re-assessed after the procedure. After obtaining informed consent, the endoscope was passed under direct vision. Throughout the procedure, the patient's blood pressure, pulse, and oxygen saturations were monitored continuously. The gastroscope was introduced through the mouth, and advanced to the second part of duodenum. The upper GI endoscopy was accomplished without difficulty. The patient tolerated the procedure well. Scope In: 8:26:16 AM Scope Out: 8:28:34 AM Total Procedure Duration Time 0 hours 2 minutes 18 seconds Findings: There were esophageal mucosal changes suspicious for short-segment Crawley's esophagus present in the lower third of the esophagus. The maximum longitudinal extent of these mucosal changes was 2 cm in length. Mucosa was biopsied with a cold forceps for histology in a targeted manner at intervals of 1 cm in the lower third of the esophagus. One specimen bottle was sent to pathology. A small hiatal hernia was present. Suspect gastroparesis due to absence of peristalsis, patient symptoms and retained gastric contents. No gross lesions were noted in the first portion of the duodenum. Impression: - Esophageal mucosal changes suspicious for short-segment Crawley's esophagus. Biopsied. - Small hiatal hernia. - Gastroparesis, secondary to drug side effect. - No gross lesions in the first portion of the duodenum. Recommendation: - Await pathology results. - Continue present medications. Procedure Code(s): --- Professional --- 24725, Esophagogastroduodenoscopy, flexible, transoral; with biopsy, single or multiple CPT copyright 2021 [employer]. All rights reserved. The codes documented in this report are preliminary and upon electrical continuity tester review may be revised to meet current compliance requirements. Guilherme Hall DO 01/29/2025 8:34:49 AM This report has been signed electronically. Number of Addenda: 0 Note Initiated On: 01/29/2025 8:16 AM
--- NOTE | 2025-01-29 08:35 | OP.CCLET_ITS ---
01/29/2025 No Primary Care Physician Re : Upper GI endoscopy procedure for Khurram Rowan Dear Care Physician This procedure was performed on Wednesday, January 29, 2025. My impressions and recommendations are as follows: Impressions : - Esophageal mucosal changes suspicious for short-segment Crawley's esophagus. Biopsied. - Small hiatal hernia. - Gastroparesis, secondary to drug side effect. - No gross lesions in the first portion of the duodenum. Recommendations : - Await pathology results. - Continue present medications. My findings are described in the full procedure note, which is enclosed. If I can be of further assistance, please feel free to contact me at . Sincerely, Guilherme Hall, 01/29/2025 8:34:49 AM This report has been signed electronically.
--- NOTE | 2025-01-29 08:39 | PCM.POST.ANE ---
Anesthesia: Postop Eval I Current Vital Signs Temperature: 97.5 F Pulse Rate: 57 Blood Pressure: 86/50 Respiratory Rate: 14 Pulse Ox: 97 Oxygen Delivery Method: Room Air Assessment Airway patent: Yes Spontaneous unlabored respirations: Yes Mental status: Asleep nausea: No Vomiting: No Anesthesia Complication: No Fluid Hydration Crystalloid volume administer (ml): 30 Total IV fluid infused: 30 Progress Note Anesthesia document: Postop Eval 1 completed: Yes
--- NOTE | 2025-01-29 08:42 | PCM.POSTANE2 ---
Anesthesia Postop Eval I Sum Postop Eval Completion status Anesthesia document: Postop Eval 1 completed: Yes Anesthesia Postop Eval I Summary Anesthesia Postop Eval I Summary: Anesthesia Postop Eval I: Assessment Summary Airway patent Yes 01/29/25 08:39 [email or web address] Spontaneous unlabored Yes 01/29/25 08:39 [email or web address] respirations Mental status Asleep 01/29/25 08:39 [email or web address] nausea No 01/29/25 08:39 [email or web address] Vomiting No 01/29/25 08:39 [email or web address] Anesthesia Postop Eval I: Fluid Summary Crystalloid volume administer 30 01/29/25 08:39 [email or web address] (ml) Colloids volume administered ( ml) Blood Product volume administered (ml) Total IV fluid infused 30 01/29/25 08:39 [email or web address] Anesthesia Postop Eval I: Summary Notes Anesthesia Complication No 01/29/25 08:39 [email or web address] Anesthesia Complication Comment: Post-operative progress note Anesthesia: Postop Eval II Evaluation Mental status: Awake Pain Level: 0 nausea: No Vomiting: No
== END 2025-01-29 09:19 | disposition home or self-care (01) ==
LOC: EN 07:07 → AC 07:08
PROVIDERS: Referring Provider Internal Medicine Gastroenterology; Visit Provider Internal Medicine Gastroenterology
PROC: 0DJ08ZZ Inspection of Upper Intestinal Tract, Via Natural or Artificial Opening Endoscopic (ICD-10-PCS; CPT 43235; principal; 2025-01-29 08:10)
DX: R10.13 Epigastric pain (principal); K44.9 Diaphragmatic hernia without obstruction or gangrene; K31.84 Gastroparesis; R11.0 Nausea; F17.290 Nicotine dependence, other tobacco product, uncomplicated; K22.89 Other specified disease of esophagus
CPT/HCPCS: 43239; 88305; A4216; J2405

== ENCOUNTER 2025-02-07 22:12 | Emergency (ER) | payer BC, SELFPAY ==
[2025-02-07 22:14] VITALS: BP 110/60; PULSE 110; RESP 18; TEMP 36.6; O2SAT 98; BMI 17.8
--- NOTE | 2025-02-07 22:34 | EX.ED.DYSGE1 ---
HPI History of Present Illness Chief Complaint: Seizure Detail of Chief Complaint: Witnessed generalized tonic-clonic seizure by father Informant: patient and parent Onset/Context/Timing Onset: Today, Yesterday (Nausea, vomiting diarrhea) and Hours (Generalized tonic-clonic seizure with incontinence) Context: Sudden Onset Timing: Intermittent Quality: Yesterday nausea, vomiting diarrhea and today generalized tonic-clonic seiz Location: Father's home Current Severity: Gone Maximum Severity: Severe Worsened by: Unknown Relieved by: Not applicable Associated Symptoms Associated Symptoms: Patient does not recall Narrative Narrative: Patient is a 24-year-old male. He admits to marijuana use. He does not smoke cigarettes nor does he use alcohol. Patient reports nausea, vomit diarrhea yesterday. He is not able to tell me the amount of times he vomited or how many loose stools he had. Emesis was bilious in nature. Diarrhea was brown in color. Patient walked from work to his father's house. Took a nap. While he was napping he had a generalized tonic-clonic seizure with incontinence that had a duration of 30 seconds.. Father called EMS. Father states there is no history of febrile seizures or seizures as a child. Sister had absence seizure's. Prior similar symptoms: No Recent Illness/Hospitalization: No PFSH PFSH Medical History Wears glasses Anxiety Marijuana use Restless legs Smoker Home Medications ?Medication ?Instructions ?Recorded ?Last Taken ?Type NK 02/07/25 Unknown History Allergy/AdvReac Type Severity Reaction Status Date / Time No Known Allergies Allergy Verified 02/07/25 22:13 Surgical History No history of previous surgery Social History Smoking Status: Current every day smoker tobacco type: e-cigarettes alcohol intake: never ROS ROS ED Constitutional Constitutional ED: Denies chills, fever(s), subjective or sweats Eyes Eyes: Denies blurry vision, change in vision or diplopia ENT ENT ED: Denies ear pain, rhinorrhea or sore throat Cardiovascular Cardiovascular: Denies chest pain or palpitations Respiratory/Chest Respiratory/Chest: Denies cough, dyspnea or dyspnea on exertion Gastrointestinal Gastrointestinal: Reports diarrhea, nausea and vomiting; Denies abdominal pain, constipation or melena Genitourinary Genitourinary ED: Denies dysuria, hematuria or urinary frequency Musculoskeletal Musculoskeletal: Denies back pain, myalgias or neck pain Integumentary Denies rash Neurologic Neurologic: Denies headache(s), paresthesias or weakness Psychiatric Psychiatric: Denies anxiety or depression Hematologic/Lymphatic Hematologic/Lymphatic: Reports systems reviewed and no addt'l complaints, except as documented EXAM Physical Exam Const Vital Signs: 02/07/25 22:14 02/08/25 00:00 02/08/25 01:00 Temperature 97.9 F Temperature Source Oral Pulse Rate 110 H 79 75 Respiratory Rate 18 18 18 Blood Pressure 110/60 102/79 Blood Pressure Mean 76 86 Pulse Ox 98 97 98 Oxygen Delivery Method Room Air Room Air Room Air Positive well nourished and well developed General Appearance ED: well developed, NAD and pallor HEENT Reports dry mucous membranes HEENT Narrative: Head is atraumatic no cephalic. Ears normal. Nares patent. Posterior pharynx is normal. Uvula is midline. No deviation with protrusion. Mouth ED: Yes dry mucous membranes Mouth: dry mucous membranes Eyes PERRL and EOMs intact bilaterally Eyes Narrative: There is no nystagmus. There is no APD. Difficulty seeing fundi. There is no obvious papilledema. General Eye ED: Negative for pale conjunctiva or scleral icterus Neck no lymphadenopathy, supple and no JVD Chest Wall inspection of chest normal and palpation of chest normal Resp normal respiratory effort and clear to auscultation bilaterally Cardio regular rhythm, S1 normal heart sound, S2 normal heart sound and no murmurs Rate: tachycardic GI normal to inspection, nondistended, normoactive bowel sounds, non-tender, non-distended and no masses; Negative for hepatosplenomegaly Back/Spine no CVA tenderness Back/Spine Narrative: Inspection of the back is normal. Extremity normal to inspection General Extremety ED: Negative for edema or tenderness General Extremity: Negative for edema Neuro oriented x3, CN's II-XII intact bilaterally and no sensory deficits noted Sensorium / Orientation: Negative for alert Motor Exam: strength 5/5 throughout Psych mental status grossly normal Skin no rashes or lesions noted, no wounds and skin turgor normal General Skin Exam: pallor; Negative for jaundice MDM MDM MDM Narrative Medical decision making narrative: Patient with generalized tonic-clonic seizure. This may be idiopathic. Need to evaluate for intracranial lesion/pathology, electrolyte abnormality, doubt infectious. Also need to entertain possibility of drug-induced. CT of the head was obtained as well as electrolyte panel, CBC and tox screen. Lab Data Attestation: I reviewed the patient's lab results. Lab results narrative: Talk screen is presumptive positive for cannabinoids. Alcohol is nondetected. Electrolyte panel is unremarkable. Glucose is slightly elevated at 112. CO2 is 14 with anion gap of 26 consistent with a seizure. CBC reveals elevated white count which is consistent with a seizure. Labs: Laboratory Results - last 24 hr 02/07/25 02/07/25 02/07/25 22:20 22:49 22:57 WBC RBC Hgb Hct MCV MCH MCHC RDW Std Deviation RDW Coeff of Lanette Plt Count MPV Immature Gran % (Auto) Neut % (Auto) Lymph % (Auto) [place] % (Auto) Eos % (Auto) Baso % (Auto) Absolute Neuts (auto) Absolute Lymphs (auto) Nucleated RBC % Sodium 138 Potassium 3.7 Chloride 97 L Carbon Dioxide 14.9 L Anion Gap 26 H BUN 17 Creatinine 1.12 Estim Creat Clear Calc 84.87 Est GFR (MDRD) Non-Af 95 BUN/Creatinine Ratio 15.0 Glucose 112 H Calcium 10.2 Total Bilirubin 0.63 AST 29 ALT 37 Alkaline Phosphatase 74 Total Protein 8.3 Albumin 5.3 H Globulin 3.0 Albumin/Globulin Ratio 1.8 Urine Opiates Screen NEGATIVE U Buprenorphine Qual NEGATIVE Ur Oxycodone Screen NEGATIVE Urine Methadone Screen NEGATIVE Urine Fentanyl Screen NEGATIVE Ur Barbiturates Screen NEGATIVE Ur Phencyclidine Scrn NEGATIVE Ur Amphetamines Screen NEGATIVE U Benzodiazepines Scrn NEGATIVE Urine Cocaine Screen NEGATIVE U Cannabinoids Screen PREUMTIVE POSITIVE Ethyl Alcohol < 10.1 02/07/25 23:42 WBC 17.0 H RBC 4.62 Hgb 13.8 Hct 39.9 L MCV 86.4 MCH 29.9 MCHC 34.6 RDW Std Deviation 42.1 RDW Coeff of Lanette 13.3 Plt Count 301 MPV 9.4 Immature Gran % (Auto) 0.500 Neut % (Auto) 93.5 H Lymph % (Auto) 3.3 L [place] % (Auto) 2.6 Eos % (Auto) 0.0 Baso % (Auto) 0.1 Absolute Neuts (auto) 15.9 H Absolute Lymphs (auto) 0.57 L Nucleated RBC % 0 Sodium Potassium Chloride Carbon Dioxide Anion Gap BUN Creatinine Estim Creat Clear Calc Est GFR (MDRD) Non-Af BUN/Creatinine Ratio Glucose Calcium Total Bilirubin AST ALT Alkaline Phosphatase Total Protein Albumin Globulin Albumin/Globulin Ratio Urine Opiates Screen U Buprenorphine Qual Ur Oxycodone Screen Urine Methadone Screen Urine Fentanyl Screen Ur Barbiturates Screen Ur Phencyclidine Scrn Ur Amphetamines Screen U Benzodiazepines Scrn Urine Cocaine Screen U Cannabinoids Screen Ethyl Alcohol Radiography Diagnostic Testing: Clinical Impression(s) from Imaging Studies Brain CT 02/07/25 22:39 IMPRESSION: No acute intracranial findings. CLINICAL HISTORY: NEW ONSET GENERALIZED TONIC-CLONIC SEIZURE [facility] was reviewed by me and interpreted by radiologist as negative. Treatment and Re-Evaluation :: Patient and father were told he had a new onset seizure. He will need an outpatient workup. Until he is seen and cleared by radiologist no driving. He is not to do any activities at [place], use power equipment, swim, take a bath. Discharge Plan Triage Chief Complaint: Seizure ED Provider: Jose Fallon Dx/Rx/DC Orders Clinical Impression: New onset seizure Instructions: ED Seizure New [facility] Adult Prescriptions: No Action NK Primary Care Provider: Care Physician,No Primary Referrals: Chao Larose MD [Non-Staff -Ordering Privileges] - 5-7 Days Care Physician,No Primary [Primary Care Provider] - Activity Restrictions/Additional Instructions: 1. You need to be seen by a neurologist. Your referred to Dr. Chao Larose.. You will need an outpatient workup. You are not to drive until he clears you. Furthermore you should not do anything at any height, use power tools, swim in a pool, lerma or pond, or take a bath. Print Language: Lithuanian Disposition Disposition: Home, Self Care
--- NOTE | 2025-02-07 22:39 | CT_ITS ---
EXAM: CT images of the brain were acquired without intravenous contrast. Multiplanar reformats were acquired. COMPARISON: None available. FINDINGS: * ACUTE: No acute infarct or hemorrhage. No mass effect or herniation. * BRAIN PARENCHYMA: Signal intensities are within normal limits for age. * VENTRICLES/EXTRA-AXIAL SPACES: No hydrocephalus or extra-axial fluid collections. * EXTRACRANIAL STRUCTURES: Visualized osseous structures are normal. Soft tissues are normal. CT/Brain/Head without Contrast IMPRESSION: No acute intracranial findings. CLINICAL HISTORY: NEW ONSET GENERALIZED TONIC-CLONIC SEIZURE Reading Location: [facility]
[2025-02-07 23:37] LABS: Amphetamine Urine NEGATIVE (<1000 ng/mL); Barbiturate Urine NEGATIVE (< 200 ng/mL); Benzodiazepine Urine NEGATIVE (< 200 ng/mL); Buprenorphine Urine NEGATIVE (< 200 ng/mL); Cocaine Urine NEGATIVE (< 300 ng/mL); Fentanyl, Urine NEGATIVE; Methadone Urine NEGATIVE (< 300 ng/mL); Opiates Urine NEGATIVE (< 300 ng/mL); Oxycodone, Urine NEGATIVE (< 100 ng/mL); PCP Urine NEGATIVE (< 25 ng/mL); THC Urine PREUMTIVE POSITIVE (< 50 ng/mL)
[2025-02-07 23:40] LABS: Alcohol, Blood (Medical)-Serum < 10.1 mg/dL (<=10.0)
[2025-02-07 23:48] LABS: Absolute Lymphocyte Count 0.57 X10^3/uL (0.83-4.51); Absolute Neutrophil Count 15.9 X10^3/uL (2.0-7.7); Basophil# 0.02 X10^3/uL; Basophil% 0.1 % (0-1); Hematocrit 39.9 % (40-54); Hemoglobin 13.8 g/dL (13.0-16.5); Lymphocyte # 0.57 X10^3/ul (0.83-4.51); Lymphocyte % 3.3 % (19-41); Mean Corp Hgb Conc 34.6 g/dL (32-36); Mean Corpuscular Hgb 29.9 pg (27.0-32.0); Mean Corpuscular Volume 86.4 fL (80-94); Mean Platelet Vol. 9.4 fl (6.2-12.0); Monocyte# 0.44 X10^3/uL; Monocyte% 2.6 % (0-10); NRBC Flagged by Analyzer 0 % (0-5); Neutrophil # 15.92 X10^3/uL (2.7-7.7); Neutrophil % 93.5 % (47-70); POSITIVE DIFFERENTIAL YES; Platelet Count 301 K/mm3 (150-450); RBC Distribution Width CV 13.3 % (11.6-14.6); RBC Distribution Width SD 42.1 fl (35.1-43.9); Red Blood Count 4.62 M/mm3 (4.6-6.2)
[2025-02-07 23:53] LABS: ALB/GLOB Ratio 1.8 RATIO (0.9-2.4); AST(SGOT) 29 U/L (<=37); Alanine Aminotransfer ALT/SGPT 37 U/L (<=46); Albumin, Serum 5.3 g/dL (3.5-5.0); Alkaline Phosphatase 74 U/L (40-129); Anion Gap 26 (5-15); BUN 17 mg/dL (4-19); Calcium,Total 10.2 mg/dL (7.6-11.0); Carbon Dioxide 14.9 mmol/L (21.0-32.0); Chloride 97 mmol/L (98-108); Creatinine, Serum 1.12 mg/dL (0.70-1.20); EST Glomerular Filtration Rate 95 (>60); Estimated Creatinine Clearance 84.87 ml/min (50-250); Glucose 112 mg/dL (70-99); Potassium 3.7 mmol/L (3.3-5.1); Protein, Total 8.3 g/dL (5.9-8.4); Sodium Level 138 mmol/L (133-145); Total Bilirubin 0.63 mg/dL (0.00-1.30)
[2025-02-08] VITALS: BP 102/79; PULSE 79; RESP 18; O2SAT 97
[2025-02-08 01:00] VITALS: PULSE 75; RESP 18; O2SAT 98
[2025-02-08 01:50] VITALS: BP 101/58; PULSE 70; RESP 17; TEMP 36.7; O2SAT 97
== END 2025-02-08 01:51 | disposition home or self-care (01) ==
PROVIDERS: Emergency Provider Emergency Medicine; Visit Provider Emergency Medicine
DX: R56.9 Unspecified convulsions (principal); F17.290 Nicotine dependence, other tobacco product, uncomplicated
CPT/HCPCS: 70450; 80053; 80307; 82077; 85025; 99285; A4216

== ENCOUNTER → 2025-02-14 | Outpatient (CLI) | payer BC, SELFPAY ==
[2025-02-14 16:17] LABS: Magnesium 2.4 mg/dL (1.5-2.2)
== END | disposition home or self-care (01) ==
LOC: MTLAB 12:59
PROVIDERS: Referring Provider Psychiatry & Neurology Neurology; Visit Provider Psychiatry & Neurology Neurology
DX: R56.9 Unspecified convulsions (principal)
CPT/HCPCS: 36415; 83735

== ENCOUNTER → 2025-02-20 | Outpatient (CLI) | payer BC, SELFPAY | END | disposition home or self-care (01) | PROVIDERS: Referring Provider Psychiatry & Neurology Neurology; Visit Provider Psychiatry & Neurology Neurology | DX: R56.9 Unspecified convulsions (principal) | CPT/HCPCS: 95819 ==

== ENCOUNTER → 2025-03-25 | Outpatient (CLI) | payer BC, SELFPAY ==
--- NOTE | 2025-03-25 12:45 | MRI_ITS ---
PROCEDURE: BRAIN WITHOUT CONTRAST 03/25/2025 REASON FOR EXAM: SEIZURE NEW ONSET EVENT ONLY 1 SEIZURE TECHNIQUE: Noncontrast brain MRI. Multiplanar and multisequence images were obtained. COMPARISON: CT 02/07/2025 FINDINGS: Brain: Normal signal intensities. No hippocampal atrophy or hyperintensity to suggest mesial temporal sclerosis. Ventricles: Normal. Major Intracranial Vessels: Normal flow voids. Sinuses: Clear. Mastoids: Clear. MRI/Brain without Contrast IMPRESSION: NORMAL NONCONTRAST MRI OF THE BRAIN. Reading Location: [id number]
== END | disposition home or self-care (01) ==
PROVIDERS: Referring Provider Psychiatry & Neurology Neurology; Visit Provider Psychiatry & Neurology Neurology
DX: R56.9 Unspecified convulsions (principal)
CPT/HCPCS: 70551

== ENCOUNTER 2025-04-09 10:09 | Emergency (ER) | payer BC, SELFPAY ==
[2025-04-09] VITALS (11 sets, daily range): BP systolic 87–146; BP diastolic 42–64; PULSE 71–105; RESP 13–19; TEMP 36.6; O2SAT 91–100; BMI 19.6
[2025-04-09] MEDS: Lorazepam 2 MG/ML WCH Syringe IV (10:10)
--- NOTE | 2025-04-09 10:10 | CT_ITS ---
PROCEDURE: BRAIN/HEAD WITHOUT CONTRAST 04/09/2025 REASON FOR EXAM: SEIZURE TECHNIQUE: Head CT without intravenous contrast. Coronal and Sagittal reconstruction series were provided. One or more dose reduction techniques were used (e.g., Automated exposure control, adjustment of the mA and/or kV according to patient size, use of iterative reconstruction technique. RADIATION DOSE SUMMARY: CTDlvol: 44.99 mGy DLP: 863.6 mGycm COMPARISON: Prior MRI examination dated March 25, 2025. FINDINGS: Brain: Normal CSF Spaces: Normal Sinuses/Mastoids: Clear at visualized levels Bones: CT/Brain/Head without Contrast IMPRESSION: NORMAL NONCONTRAST HEAD CT. Reading Location: [facility]
--- NOTE | 2025-04-09 10:12 | EDS_ITS ---
HPI History of Present Illness Chief Complaint: Seizure Detail of Chief Complaint: Seizure Informant: EMS Narrative Narrative: Patient brought to the emergency department by EMS for complaint of seizure that occurred this morning. Per EMS girlfriend called chiki because patient had a seizure lasting about a minute whole body tonic-clonic. On EMS arrival he was postictal but starting to answer questions. Patient then again became somewhat more confused and had another whole body tonic-clonic seizure lasting about a minute. Patient was actively seizing on arrival to the emergency department. EMS states that patient apparently had a seizure in January of this year and no etiology was found. He is currently not medicated for seizure disorder. No known recent illness or known trauma. Patient unable to give history at this time [facility] Medical History Seizure Wears glasses Anxiety Marijuana use Restless legs Smoker Home Medications ?Medication ?Instructions ?Recorded ?Last Taken ?Type levetiracetam 1,000 mg tablet 1,000 mg PO BID #60 tabs 04/09/25 Unknown Rx (Keppra) Allergy/AdvReac Type Severity Reaction Status Date / Time No Known Allergies Allergy Verified 02/14/25 11:38 Family History Mother Autoimmune disease Father No problems noted. Surgical History No history of previous surgery Social History (Updated 02/14/25 @ 11:42 by Claudia Bob) household members: spouse and children current occupational status: employed current occupation: maintenence pets and animals: Yes pets and animals: cat(s) and dog(s) Smoking Status: Current every day smoker tobacco type: e-cigarettes alcohol intake: never caffeine: Yes Type: other Number of servings: 1 do you feel safe at home: Yes ROS ROS ED Review of Systems ROS Unobtainable: due to mental status EXAM Physical Exam Const Vital Signs: 04/09/25 10:09 04/09/25 10:15 04/09/25 10:50 Temperature 97.9 F Temperature Source Axillary Pulse Rate 99 105 H 75 Respiratory Rate 19 H 18 17 Blood Pressure 146/64 H 143/50 H 117/61 Blood Pressure Mean 91 81 79 Pulse Ox 93 93 94 Oxygen Delivery Method Room Air Room Air Room Air 04/09/25 11:00 04/09/25 11:15 04/09/25 11:30 Temperature Temperature Source Pulse Rate 71 81 81 Respiratory Rate 17 16 13 Blood Pressure 120/47 L 106/50 L 111/47 L Blood Pressure Mean 71 68 64 Pulse Ox 94 100 Oxygen Delivery Method Room Air Room Air 04/09/25 11:45 04/09/25 11:47 04/09/25 12:00 Temperature Temperature Source Pulse Rate 82 83 Respiratory Rate 14 15 Blood Pressure 92/44 L 87/42 L Blood Pressure Mean 55 55 Pulse Ox 91 Oxygen Delivery Method Positive well nourished and well developed General Appearance ED: well developed and NAD HEENT Reports TM's clear and moist mucous membranes HEENT Narrative: Bite wounds noted to the tongue. No external evidence of trauma to his head. normocephalic and atraumatic; Negative for trauma or tenderness Tympanic Membrane ED: Yes TM's clear Eyes PERRL and EOMs intact bilaterally General Eye ED: Negative for pale conjunctiva or scleral icterus Neck no lymphadenopathy, supple and no JVD General: Negative for tenderness Chest Wall inspection of chest normal and palpation of chest normal Chest: Negative for tenderness Resp normal respiratory effort and clear to auscultation bilaterally Effort and Inspection: Negative for respiratory distress or pain with movement Auscultation: Negative for rhonchi, wheezes or diminished lung sounds Cardio regular rate, regular rhythm, S1 normal heart sound, S2 normal heart sound and no murmurs Peripheral Pulses: pulses 2+ throughout GI normal to inspection, nondistended, normoactive bowel sounds, soft to palpation, non-tender, non-distended and no masses Back/Spine no CVA tenderness and no thoracic nor lumbar tenderness Extremity normal to inspection General Extremety ED: Negative for edema General Extremity: Negative for edema Neuro oriented x3, CN's II-XII intact bilaterally, no sensory deficits noted and gait normal Sensorium / Orientation: awake, alert, oriented to person, oriented to place and oriented to time Motor Exam: strength 5/5 throughout and strength abnormal Psych mental status grossly normal Skin no rashes or lesions noted and no wounds MDM MDM MDM Narrative Medical decision making narrative: Patient presented to the emergency department with ongoing seizure activity. IV line established and patient placed on a clinical research monitor. Patient stopped seizing prior to any treatment given. I did order a milligram of Ativan IV and also Keppra 3.6 g IV. Will obtain labs as well as CT scan of the brain without contrast. Will obtain alcohol and toxicology screen. Patient became quite combative as he was postictal and required physical restraint as well as chemical restraint with Geodon and Ativan. CBC with differential obtained showed a white count of 8.1 with hemoglobin 15.1 and platelet count of 384. Chemistries were unremarkable. LFTs did show elevation of the AST at 56 and ALT was 99. Alk phos was 73. Toxicology screen presumptive positive for THC. CT scan of the brain without contrast was unremarkable. I was able to get more history from the patient's girlfriend and apparently he has been following up with neurology. He had a recent MRI of the brain that was normal. He had initial EEG that there was some issue with an apparently has another EEG scheduled she believes for next month. Currently he is not on seizure medication. Will discuss case with neurologist Dr. Pritchett. Neurologist was able to read patient's EEG study that did show some delta spikes concerning for seizure activity. Recommended at this time starting patient on Keppra 1000 mg twice daily and having patient keep his follow-up appointment with their office. Family comfortable with plan going forward. Lab Data Attestation: I reviewed the patient's lab results. Labs: Laboratory Results - last 24 hr 04/09/25 04/09/25 10:24 10:55 WBC 8.1 RBC 5.08 Hgb 15.1 Hct 46.0 MCV 90.6 MCH 29.7 MCHC 32.8 RDW Std Deviation 48.1 H RDW Coeff of Lanette 14.3 Plt Count 384 MPV 9.8 Immature Gran % (Auto) 1.100 H Neut % (Auto) 58.8 Lymph % (Auto) 33.6 [place] % (Auto) 4.4 Eos % (Auto) 1.1 Baso % (Auto) 1.0 Absolute Neuts (auto) 4.8 Absolute Lymphs (auto) 2.73 Nucleated RBC % 0 Sodium 138 Potassium 3.7 Chloride 99 Carbon Dioxide 16.3 L Anion Gap 23 H BUN 16 Creatinine 1.12 Estim Creat Clear Calc 93.50 Est GFR (MDRD) Non-Af 95 BUN/Creatinine Ratio 13.9 Glucose 217 H Calcium 10.2 Total Bilirubin 1.04 AST 56 H ALT 99 H Alkaline Phosphatase 73 Total Protein 8.4 Albumin 5.4 H Globulin 3.0 Albumin/Globulin Ratio 1.8 Urine Opiates Screen NEGATIVE U Buprenorphine Qual NEGATIVE Ur Oxycodone Screen NEGATIVE Urine Methadone Screen NEGATIVE Urine Fentanyl Screen NEGATIVE Ur Barbiturates Screen NEGATIVE Ur Phencyclidine Scrn NEGATIVE Ur Amphetamines Screen NEGATIVE U Benzodiazepines Scrn NEGATIVE Urine Cocaine Screen NEGATIVE U Cannabinoids Screen PRESUMPTIVE POSITIVE Radiography Diagnostic Testing: Clinical Impression(s) from Imaging Studies Brain CT 04/09/25 10:10 IMPRESSION: NORMAL NONCONTRAST HEAD CT. Reading Location: [id number] Discharge Plan Triage Chief Complaint: Seizure ED Provider: Mario Ruby Dx/Rx/DC Orders Clinical Impression: Seizure Instructions: Discharge Instructions for Epilepsy, ED Seizure, Recurrent (Adult), ED Seizure New [facility] Adult Prescriptions: New levetiracetam [Keppra] 1,000 mg tablet 1,000 mg PO BID Qty: 60 0RF Primary Care Provider: Care Physician,No Primary Referrals: Chao Larose MD [Non-Staff -Ordering Privileges] - Keep [facility] appointment Care Physician,No Primary [Primary Care Provider] - Print Language: Bengali Disposition Disposition: Home, Self Care
[2025-04-09 10:30] LABS: Absolute Lymphocyte Count 2.73 X10^3/uL (0.83-4.51); Absolute Neutrophil Count 4.8 X10^3/uL (2.0-7.7); Basophil# 0.08 X10^3/uL; Eosinophil# 0.09 X10^3/uL; Eosinophils% 1.1 % (0-5); Hemoglobin 15.1 g/dL (13.0-16.5); Lymphocyte # 2.73 X10^3/ul (0.83-4.51); Lymphocyte % 33.6 % (19-41); Mean Corp Hgb Conc 32.8 g/dL (32-36); Mean Corpuscular Hgb 29.7 pg (27.0-32.0); Mean Corpuscular Volume 90.6 fL (80-94); Mean Platelet Vol. 9.8 fl (6.2-12.0); Monocyte# 0.36 X10^3/uL; Monocyte% 4.4 % (0-10); NRBC Flagged by Analyzer 0 % (0-5); Neutrophil # 4.77 X10^3/uL (2.7-7.7); Neutrophil % 58.8 % (47-70); Platelet Count 384 K/mm3 (150-450); RBC Distribution Width CV 14.3 % (11.6-14.6); RBC Distribution Width SD 48.1 fl (35.1-43.9); Red Blood Count 5.08 M/mm3 (4.6-6.2); White Blood Count 8.1 K/mm3 (4.4-11.0)
[2025-04-09] MEDS: Ziprasidone IM 20 MG/ML VIAL IM (10:38)
[2025-04-09 11:03] LABS: ALB/GLOB Ratio 1.8 RATIO (0.9-2.4); AST(SGOT) 56 U/L (<=37); Alanine Aminotransfer ALT/SGPT 99 U/L (<=46); Albumin, Serum 5.4 g/dL (3.5-5.0); Alkaline Phosphatase 73 U/L (40-129); Anion Gap 23 (5-15); BUN 16 mg/dL (4-19); BUN/Creat Ratio 13.9 RATIO (10-20); Calcium,Total 10.2 mg/dL (7.6-11.0); Carbon Dioxide 16.3 mmol/L (21.0-32.0); Chloride 99 mmol/L (98-108); Creatinine, Serum 1.12 mg/dL (0.70-1.20); EST Glomerular Filtration Rate 95 (>60); Glucose 217 mg/dL (70-99); Potassium 3.7 mmol/L (3.3-5.1); Protein, Total 8.4 g/dL (5.9-8.4); Sodium Level 138 mmol/L (133-145); Total Bilirubin 1.04 mg/dL (0.00-1.30)
[2025-04-09] MEDS: 0.9% Normal Saline (1000mL) 1,000 ML 150 ML IV (11:03)
[2025-04-09] MEDS: LEVETIRACETAM IV (11:03)
[2025-04-09] MEDS: NORMAL SALINE 0.9% IV (11:03)
[2025-04-09 11:51] LABS: Amphetamine Urine NEGATIVE (<1000 ng/mL); Barbiturate Urine NEGATIVE (< 200 ng/mL); Benzodiazepine Urine NEGATIVE (< 200 ng/mL); Buprenorphine Urine NEGATIVE (< 200 ng/mL); Cocaine Urine NEGATIVE (< 300 ng/mL); Fentanyl, Urine NEGATIVE; Methadone Urine NEGATIVE (< 300 ng/mL); Opiates Urine NEGATIVE (< 300 ng/mL); Oxycodone, Urine NEGATIVE (< 100 ng/mL); PCP Urine NEGATIVE (< 25 ng/mL); THC Urine PRESUMPTIVE POSITIVE (< 50 ng/mL)
--- NOTE | 2025-04-09 14:21 | CM.ED ---
Social Work SW met with patients girlfriend and dad in the waiting room. Girlfriend stated that patient had had a seizure a month or so again but they were not able to find the cause and they were hopeful that patient could go back to work as he had not had another one. Girlfriend states today she woke to patient having another seizure. SW offered supportive listening and emotional support. Patients dad also stated that patient does not have a PCP, [facility] provider list was given. No further needs at this time. Gris Gaston, FLAME PLANER, VOLUNTEER RECRUITER
[2025-04-09 14:32] LABS: Alcohol, Blood (Medical)-Serum < 10.1 mg/dL (<=10.0)
== END 2025-04-09 13:18 | disposition home or self-care (01) ==
PROVIDERS: Emergency Provider Emergency Medicine; Visit Provider Emergency Medicine
DX: R56.9 Unspecified convulsions (principal); F17.290 Nicotine dependence, other tobacco product, uncomplicated
CPT/HCPCS: 70450; 80053; 80307; 82077; 85025; 96365; 96372; 96375; 99285; J3486

== ENCOUNTER 2025-04-15 11:04 | Emergency (ER) | payer BC, SELFPAY ==
[2025-04-15 11:05] VITALS: BP 137/88; PULSE 56; RESP 16; TEMP 36.3; O2SAT 100; BMI 17.2
--- NOTE | 2025-04-15 11:34 | EKG12_ITS ---
Test Reason : Blood Pressure : */* mmHG Vent. Rate : 50 BPM Atrial Rate : 50 BPM P-R Int : 132 ms QRS Dur : 98 ms QT Int : 468 ms P-R-T Axes : 66 61 75 degrees QTcB Int : 426 ms Sinus bradycardia Nonspecific ST and T wave abnormality Abnormal ECG Confirmed by MIRIAM HENDRIX, EMILY ([id number]), research editor JAROD MENDEZ ([id number] on 04/16/2025 10:34:49 AM Referred By: Confirmed By: EMILY PINEDA MD
[2025-04-15 11:45] LABS: Absolute Neutrophil Count 7.3 X10^3/uL (2.0-7.7); Basophil# 0.03 X10^3/uL; Basophil% 0.3 % (0-1); Eosinophil# 0.01 X10^3/uL; Eosinophils% 0.1 % (0-5); Hematocrit 45.2 % (40-54); Hemoglobin 16.6 g/dL (13.0-16.5); Lymphocyte % 10.1 % (19-41); Mean Corp Hgb Conc 36.7 g/dL (32-36); Mean Corpuscular Volume 81.7 fL (80-94); Mean Platelet Vol. 10.3 fl (6.2-12.0); Monocyte# 0.61 X10^3/uL; Monocyte% 6.9 % (0-10); NRBC Flagged by Analyzer 0 % (0-5); Neutrophil # 7.28 X10^3/uL (2.7-7.7); Neutrophil % 82.1 % (47-70); Platelet Count 337 K/mm3 (150-450); RBC Distribution Width CV 13.2 % (11.6-14.6); RBC Distribution Width SD 38.8 fl (35.1-43.9); Red Blood Count 5.53 M/mm3 (4.6-6.2); White Blood Count 8.9 K/mm3 (4.4-11.0)
--- NOTE | 2025-04-15 11:48 | EX.ED.DYSGE1 ---
HPI History of Present Illness Chief Complaint: Nausea/Vomiting Informant: patient Narrative Narrative: Patient is a 24 year old male with recent diagnosis of seizures started on Keppra presenting with nausea and vomiting. It started on Monday after his first dose of Keppra. He does also have a history of gastroparesis and regular marijuana use but has not used since Monday when all of this started (5 days ago). He is complaining of periumbilical abdominal discomfort. Denies any blood in his vomit or stool. States he has had normal bowel movements. Is not sure if this is medication side effect. Tried cclt-yjz-oaiavjm nausea medicine with no relief. Patient had an EEG on 02/21/2025 due to seizure disorder. No seizures were reported recommended longer EEG. Neurology note from 02/18/2025 reviewed?plan for outpatient follow-up and concern that seizure was associated with electrolyte normality or hypoglycemic. Patient was seen in our ER on 04/09/2025 (1 week ago). This was for seizure activity and another seizure in the ER that was witnessed. He had a repeat CT of the brain which did not show any acute process. Case discussed with neurology, Dr. Ariel Yang and patient was started on Keppra 1000 mg twice daily. PFSH PFSH Medical History Seizure Wears glasses Anxiety Marijuana use Restless legs Smoker Home Medications ?Medication ?Instructions ?Recorded ?Last Taken ?Type levetiracetam 1,000 mg tablet 1,000 mg PO BID #60 tabs 04/09/25 Unknown Rx (Keppra) [id number]-ycqjsdpkxoycc-[id number] 250 1 tab PO Q6H PRN pain 04/15/25 Unknown History mg-250 mg-65 mg tablet (Excedrin Extra Strength) famotidine 20 mg tablet (Pepcid) 20 mg PO BID #20 tabs 04/15/25 Unknown Rx ondansetron 4 mg disintegrating 4 mg PO Q6H PRN nausea and 04/15/25 Unknown Rx tablet vomiting #20 tabs sodium di- and 1 tab PO TID #21 tabs 04/15/25 Unknown Rx monophosphate-potassium phos monobasic 250 mg tablet (Phospha Neutral) Allergy/AdvReac Type Severity Reaction Status Date / Time No Known Allergies Allergy Verified 02/14/25 11:38 Family History Mother Autoimmune disease Father No problems noted. Surgical History No history of previous surgery Social History household members: spouse and children current occupational status: employed current occupation: maintenence pets and animals: Yes pets and animals: cat(s) and dog(s) Smoking Status: Current every day smoker tobacco type: e-cigarettes alcohol intake: never caffeine: Yes Type: other Number of servings: 1 do you feel safe at home: Yes ROS ROS ED Constitutional Constitutional ED: Denies chills or fever(s) ENT ENT ED: Denies sore throat Cardiovascular Cardiovascular: Denies chest pain Respiratory/Chest Respiratory/Chest: Denies cough or dyspnea Gastrointestinal Gastrointestinal: Reports abdominal pain, nausea and vomiting; Denies constipation or diarrhea Musculoskeletal Musculoskeletal: Denies arthralgias or myalgias Integumentary Denies rash Neurologic Neurologic: Reports weakness EXAM Physical Exam Const Vital Signs: 04/15/25 11:05 04/15/25 12:05 04/15/25 14:00 Temperature 97.4 F L 99.1 F Temperature Source Temporal Oral Pulse Rate 56 L 57 L 57 L Respiratory Rate 16 18 16 Blood Pressure 137/88 H 124/80 H 124/75 H Blood Pressure Mean 104 94 91 Pulse Ox 100 100 100 Oxygen Delivery Method Room Air Room Air Room Air Positive cachectic General Appearance ED: cachectic and NAD; Negative for pallor Nutritional Appearance: cachectic HEENT Reports dry mucous membranes Mouth ED: Yes dry mucous membranes Mouth: dry mucous membranes Eyes PERRL General Eye ED: Negative for scleral icterus Neck supple Chest Wall inspection of chest normal and palpation of chest normal Resp normal respiratory effort and clear to auscultation bilaterally Cardio regular rate and regular rhythm GI normal to inspection, nondistended, normoactive bowel sounds Auscultation: hypoactive bowel sounds Palpation: soft and tender epigastric and periumbilical; Negative for guarding Extremity normal to inspection General Extremety ED: Negative for edema General Extremity: Negative for edema Neuro oriented x3 Sensorium / Orientation: alert Motor Exam: Negative for general weakness Psych mental status grossly normal Skin no rashes or lesions noted and no wounds General Skin Exam: Negative for jaundice or pallor MDM MDM MDM Narrative Medical decision making narrative: And is evaluated for intractable nausea and vomiting for the past week. Recent started on Keppra and is not sure if this was related. Patient notes he has a history of low weights and has had trouble keeping on his weight off does not feel the need to eat. He is not keeping things down this week. Workup obtained to look for findings as with pancreatitis, dehydration, SIENNA, electrolyte abnormality, electrolyte deficiencies. Lower suspicion for infectious etiology. Denies history of abdominal surgeries low suspicion for obstruction. He is not peritoneal. CBC largely normal except for his hemoglobin which is elevated at 16.6 my suspect is a component of hemoconcentration. It is above his baseline. CMP shows mildly elevated anion gap of 16 with a bicarb of 19.7. His creatinine is also above his baseline at 1.54 (baseline 1.12). Patient does have very low phosphorus at 1.1 but his other electrolytes (potassium magnesium as well as sodium and chloride) are normal. Lipase is normal suspicion for pancreatitis. Normal liver enzymes low suspicion for biliary colic as a cause of his symptoms. Bilirubin is mildly elevated but I suspect this is secondary to hemoconcentration as well. On repeat evaluation after receiving IV fluids and Zofran patient is feeling much better. He is drinking water at the bedside now. I will defer imaging at this time. I did look up side effects and reactions to Keppra and I do not think his presentation is associated with this. Patient begin the second liter of fluid. Will be started on Neutra-Phos supplementation. Counseled on the importance of increasing his dietary intake. Will discharge home with return precautions and a prescription for Zofran. Given persistent vomiting also started on a course of Pepcid. Patient verbalized agreement or stands plan. Lab Data Attestation: I reviewed the patient's lab results. Labs: Laboratory Results - last 24 hr 04/15/25 04/15/25 11:30 12:49 WBC 8.9 RBC 5.53 Hgb 16.6 H Hct 45.2 MCV 81.7 MCH 30.0 MCHC 36.7 H RDW Std Deviation 38.8 RDW Coeff of Lanette 13.2 Plt Count 337 MPV 10.3 Immature Gran % (Auto) 0.500 Neut % (Auto) 82.1 H Lymph % (Auto) 10.1 L Milam % (Auto) 6.9 Eos % (Auto) 0.1 Baso % (Auto) 0.3 Absolute Neuts (auto) 7.3 Absolute Lymphs (auto) 0.90 Nucleated RBC % 0 Sodium Cancelled 136 Potassium Cancelled 3.9 Chloride Cancelled 101 Carbon Dioxide Cancelled 19.7 L Anion Gap Cancelled 16 H BUN Cancelled 27 H Creatinine Cancelled 1.54 H Estim Creat Clear Calc Cancelled 59.42 Est GFR (MDRD) Non-Af Cancelled 65 BUN/Creatinine Ratio Cancelled 17.5 Glucose Cancelled 99 Calcium Cancelled 9.8 Phosphorus Cancelled 1.1 L* Magnesium Cancelled 1.9 Total Bilirubin Cancelled 1.97 H AST Cancelled 21 ALT Cancelled 28 Alkaline Phosphatase Cancelled 64 Total Protein Cancelled 7.6 Albumin Cancelled 4.7 Globulin Cancelled 2.8 Albumin/Globulin Ratio Cancelled 1.7 Lipase Cancelled 18 Rhythm Strip Rhythm Strip: Sinus Rhythm Rate: 50 Ectopy: None EKG Initial EKG: Attestation: I personally reviewed and interpreted this EKG as follows: Interpretation: Sinus Bradycardia Comments: Sinus bradycardia at a rate of 50 bpm Normal axis Normal intervals Normal ST segments Discharge Plan Triage Chief Complaint: Nausea/Vomiting ED Provider: María Lugo Dx/Rx/DC Orders Clinical Impression: Nausea & vomiting, Hypophosphatemia, Acute dehydration Instructions: Hypophosphatemia Dc, ED Dehydration (Adult), ED Vomiting (Adult) Prescriptions: New ondansetron 4 mg tablet,disintegrating 4 mg PO Q6H PRN (Reason: nausea and vomiting) Qty: 20 0RF Phospha 250 Neutral 250 mg tablet 1 tab PO TID Qty: 21 0RF famotidine [Pepcid] 20 mg tablet 20 mg PO BID Qty: 20 0RF No Action Excedrin Extra Strength 250-250-65 mg tablet 1 tab PO Q6H PRN (Reason: pain) levetiracetam [Keppra] 1,000 mg tablet 1,000 mg PO BID Qty: 60 0RF Primary Care Provider: Care Physician,No Primary Referrals: Friend,Guilherme, [Med Staff - Active Staff] - Care Physician,No Primary [Primary Care Provider] - [facility] [Non-Staff] - Activity Restrictions/Additional Instructions: Your lab work showed signs of dehydration that were moderate as well as low phosphorus level. Please push fluids including electrolyte supplements. Skim milk is a good source phosphate. You were given prescription for electrolyte replacements. Please follow-up with primary care for repeat labs in the next 5 to 7 days. If your symptoms are worsening or your vomiting returns please return to the emergency room. You been given referral for GI specialist as well given the severity of your nausea and vomiting. Print Language: Luxembourgish Disposition Disposition: Home, Self Care
[2025-04-15] MEDS: Ondansetron 4 MG/2 ML Vial IV (12:01)
[2025-04-15 12:05] VITALS: BP 124/80; PULSE 57; RESP 18; TEMP 37.3; O2SAT 100
[2025-04-15] MEDS: 0.9% Normal Saline (1000mL) 1,000 ML 999 ML IV ×2 (13:00→13:59)
[2025-04-15 13:22] LABS: ALB/GLOB Ratio 1.7 RATIO (0.9-2.4); AST(SGOT) 21 U/L (<=37); Alanine Aminotransfer ALT/SGPT 28 U/L (<=46); Albumin, Serum 4.7 g/dL (3.5-5.0); Alkaline Phosphatase 64 U/L (40-129); Anion Gap 16 (5-15); BUN 27 mg/dL (4-19); BUN/Creat Ratio 17.5 RATIO (10-20); Calcium,Total 9.8 mg/dL (7.6-11.0); Carbon Dioxide 19.7 mmol/L (21.0-32.0); Chloride 101 mmol/L (98-108); Creatinine, Serum 1.54 mg/dL (0.70-1.20); EST Glomerular Filtration Rate 65 (>60); Estimated Creatinine Clearance 59.42 ml/min (50-250); Globulin 2.8 g/dL (2.2-4.2); Glucose 99 mg/dL (70-99); Lipase 18 U/L (13-75); Magnesium 1.9 mg/dL (1.5-2.2); Phosphorus 1.1 mg/dL (2.7-4.5); Potassium 3.9 mmol/L (3.3-5.1); Protein, Total 7.6 g/dL (5.9-8.4); Sodium Level 136 mmol/L (133-145); Total Bilirubin 1.97 mg/dL (0.00-1.30)
[2025-04-15 14:00] VITALS: BP 124/75; PULSE 57; RESP 16; O2SAT 100
== END 2025-04-15 15:37 | disposition home or self-care (01) ==
PROVIDERS: Emergency Provider Emergency Medicine; Visit Provider Emergency Medicine
DX: R11.2 Nausea with vomiting, unspecified (principal); G40.909 Epilepsy, unspecified, not intractable, without status epilepticus; E86.0 Dehydration; E83.39 Other disorders of phosphorus metabolism; F17.290 Nicotine dependence, other tobacco product, uncomplicated; Z79.899 Other long term (current) drug therapy
CPT/HCPCS: 80053; 83690; 83735; 84100; 85025; 93005; 96361; 96374; 99282; A4216; J2405

== ENCOUNTER 2025-04-22 10:31 | Emergency (ER) | payer BC, SELFPAY ==
[2025-04-22 10:33] VITALS: BP 149/102; PULSE 70; RESP 16; TEMP 36.3; O2SAT 100; BMI 16.5
--- NOTE | 2025-04-22 11:10 | ED.VIS.GI ---
HPI HPI - GI History of Present Illness Chief Complaint: Nausea/Vomiting Informant: patient Narrative Narrative: 24-year-old male presents with vomiting and epigastric pain for the past week. He was seen here for this previously, he felt a little better when he was here but he is continue to have trouble keeping anything down. Worse in the morning/after he takes his morning Keppra which she is newly on for seizures. He had an appointment with neurology today, he states they ran some blood work, and he was advised to call and set up an appointment for an outpatient long EEG. He has an appoint with GI tomorrow, with suggested he may have gastroparesis on an endoscopy in the past. He has never had any abdominal surgeries. He smokes occasional marijuana, he states been doing this since age 13 without any issues until recently this month, and this month he had a couple of seizures so he was placed on Keppra and that is new as well. This past week since he has been here, he smoked marijuana 2 days ago and that was all. He states that things seem to be better that day than the others. He states he was also placed on phosphorus replacement and he is having trouble keeping that down. He is not sure if the phosphorus or the Keppra is upsetting his stomach more. He has been able to keep some small amount of fluid down. PFSH PFSH Medical History Seizure Wears glasses Anxiety Marijuana use Restless legs Smoker Home Medications ?Medication ?Instructions ?Recorded ?Last Taken ?Type [id number]-[id number]-bndvvzrh 250 1 tab PO Q6H PRN pain 04/15/25 Unknown History mg-250 mg-65 mg tablet (Excedrin Extra Strength) famotidine 20 mg tablet (Pepcid) 20 mg PO BID #20 tabs 04/15/25 Unknown Rx ondansetron 4 mg disintegrating 4 mg PO Q6H PRN nausea and 04/15/25 Unknown Rx tablet vomiting #20 tabs sodium di- and 1 tab PO TID #21 tabs 04/15/25 Unknown Rx monophosphate-potassium phos monobasic 250 mg tablet (Phospha Neutral) levetiracetam 1,000 mg tablet 1,000 mg PO BID #60 tabs 04/22/25 Unknown Rx (Keppra) metoclopramide HCl 10 mg tablet 10 mg PO Q6H PRN nausea and 04/22/25 Unknown Rx vomiting #20 tabs Allergy/AdvReac Type Severity Reaction Status Date / Time No Known Allergies Allergy Verified 04/22/25 10:35 Family History Mother Autoimmune disease Father No problems noted. Surgical History No history of previous surgery Social History (Updated 04/22/25 @ 11:[address] Migel Roldan MD) household members: spouse and children current occupational status: employed current occupation: maintenence pets and animals: Yes pets and animals: cat(s) and dog(s) Smoking Status: Current every day smoker tobacco type: e-cigarettes alcohol intake: never substance use type: marijuana caffeine: Yes Type: other Number of servings: 1 do you feel safe at home: Yes ROS ROS ED Constitutional Constitutional ED: Denies chills or fever(s) Eyes Eyes: Denies change in vision or diplopia ENT ENT ED: Denies rhinorrhea or sore throat Cardiovascular Cardiovascular: Denies chest pain or palpitations Respiratory/Chest Respiratory/Chest: Denies cough or dyspnea Gastrointestinal Gastrointestinal: Reports abdominal pain, nausea and vomiting; Denies diarrhea, hematemesis, hematochezia or melena Genitourinary Genitourinary ED: Denies dysuria or hematuria Musculoskeletal Musculoskeletal: Denies back pain or neck pain Integumentary Denies abscess or rash Neurologic Neurologic: Denies headache(s), paresthesias or weakness Psychiatric Psychiatric: Denies anxiety or suicidal thoughts EXAM Physical Exam Const Vital Signs: 04/22/25 10:33 04/22/25 12:32 04/22/25 13:59 Temperature 97.4 F L Temperature Source Oral Pulse Rate 70 62 68 Respiratory Rate 16 16 Blood Pressure 149/102 H 126/76 H 138/80 H Blood Pressure Mean 117 92 99 Pulse Ox 100 100 100 Oxygen Delivery Method Room Air Room Air Room Air 04/22/25 14:23 Temperature 97.4 F L Temperature Source Pulse Rate 69 Respiratory Rate 16 Blood Pressure 137/90 H Blood Pressure Mean 105 Pulse Ox 100 Oxygen Delivery Method Positive well nourished and well developed General Appearance ED: well developed and NAD HEENT Reports moist mucous membranes normocephalic and atraumatic Eyes PERRL and EOMs intact bilaterally Neck full ROM and supple Resp normal respiratory effort and clear to auscultation bilaterally Cardio regular rate, regular rhythm and no murmurs GI non-distended GI Narrative: Epigastric tenderness Auscultation: normoactive bowel sounds Palpation: soft; Negative for guarding or rebound tenderness present Back/Spine no CVA tenderness General Back: other FROM Extremity normal to inspection General Extremety ED: Negative for edema, pulses abnormal or tenderness General Extremity: Negative for edema or pulses abnormal Neuro oriented x3, CN's II-XII intact bilaterally and no sensory deficits noted Sensorium / Orientation: awake and alert Motor Exam: strength 5/5 throughout Skin no rashes or lesions noted and no wounds MDM MDM MDM Narrative Medical decision making narrative: I did a CBC as well as a phosphorus and a magnesium level given his recent low levels and the fact that his potassium was low on his CMP when it finally came back from outpatient drawl prior to coming here, his potassium is 3.1, his phosphorus higher than it was at 1.7 and his magnesium is normal. He was given IV fluids, Reglan, and Bentyl. He had a lot of relief from these medications. He was then given IV potassium chloride 10 mEq while we also let him have water and applesauce. Tolerated this very well, he felt much better, I am giving him a prescription for some metoclopramide to use as needed at home, follow-up advised he is already scheduled and comfortable with this plan. I discussed changing his levetiracetam to a different antiepileptic if he thought maybe he was vomiting more after taking it, but he does not want to change it right now and states that if he becomes a persistent issue after seeing GI, he will discuss it with his neurologist. Lab Data Attestation: I reviewed the patient's lab results. Labs: Laboratory Results - last 24 hr 04/22/25 11:19 WBC 11.4 H RBC 4.85 Hgb 14.5 Hct 39.5 L MCV 81.4 MCH 29.9 MCHC 36.7 H RDW Std Deviation 37.5 RDW Coeff of Lanette 12.6 Plt Count 329 MPV 9.0 Immature Gran % (Auto) 0.600 Neut % (Auto) 85.6 H Lymph % (Auto) 9.5 L Lares % (Auto) 4.0 Eos % (Auto) 0.1 Baso % (Auto) 0.2 Absolute Neuts (auto) 9.8 H Absolute Lymphs (auto) 1.08 Nucleated RBC % 0 Phosphorus 1.7 L Magnesium 1.9 Radiography Diagnostic Testing: Clinical Impression(s) from Imaging Studies Acute Abdomen Series 04/22/25 11:35 IMPRESSION: Fecal retention in the colon consistent with constipation. Reading Location: [facility] Discharge Plan Triage Chief Complaint: Nausea/Vomiting ED Provider: Migel Roldan Dx/Rx/DC Orders Clinical Impression: Nausea & vomiting, Hypophosphatemia, Acute epigastric pain, Hypokalemia due to excessive gastrointestinal loss of potassium Instructions: ED Diet Vomiting Diarrhea Prescriptions: New metoclopramide HCl 10 mg tablet 10 mg PO Q6H PRN (Reason: nausea and vomiting) Qty: 20 0RF No Action levetiracetam [Keppra] 1,000 mg tablet 1,000 mg PO BID Qty: 60 1RF Excedrin Extra Strength 250-250-65 mg tablet 1 tab PO Q6H PRN (Reason: pain) ondansetron 4 mg tablet,disintegrating 4 mg PO Q6H PRN (Reason: nausea and vomiting) Qty: 20 0RF Phospha 250 Neutral 250 mg tablet 1 tab PO TID Qty: 21 0RF famotidine [Pepcid] 20 mg tablet 20 mg PO BID Qty: 20 0RF Primary Care Provider: Care Physician,No Primary Referrals: Doctor,Your [Non-Staff] - Keep Rich appointment Print Language: Chadian Disposition Disposition: Home, Self Care
[2025-04-22] MEDS: 0.9% Normal Saline (1000mL) 1,000 ML 999 ML IV (11:25)
[2025-04-22] MEDS: Metoclopramide 10 MG/2 ML Vial 5 MG IV (11:25)
[2025-04-22] MEDS: Dicyclomine 20 MG/2 ML Vial IM (11:26)
[2025-04-22 11:32] LABS: Absolute Lymphocyte Count 1.08 X10^3/uL (0.83-4.51); Absolute Neutrophil Count 9.8 X10^3/uL (2.0-7.7); Basophil# 0.02 X10^3/uL; Basophil% 0.2 % (0-1); Eosinophil# 0.01 X10^3/uL; Eosinophils% 0.1 % (0-5); Hematocrit 39.5 % (40-54); Hemoglobin 14.5 g/dL (13.0-16.5); Lymphocyte # 1.08 X10^3/ul (0.83-4.51); Lymphocyte % 9.5 % (19-41); Mean Corp Hgb Conc 36.7 g/dL (32-36); Mean Corpuscular Hgb 29.9 pg (27.0-32.0); Mean Corpuscular Volume 81.4 fL (80-94); Monocyte# 0.46 X10^3/uL; NRBC Flagged by Analyzer 0 % (0-5); Neutrophil # 9.77 X10^3/uL (2.7-7.7); Neutrophil % 85.6 % (47-70); Platelet Count 329 K/mm3 (150-450); RBC Distribution Width CV 12.6 % (11.6-14.6); RBC Distribution Width SD 37.5 fl (35.1-43.9); Red Blood Count 4.85 M/mm3 (4.6-6.2); White Blood Count 11.4 K/mm3 (4.4-11.0)
--- NOTE | 2025-04-22 11:35 | RAD_ITS ---
EXAM: XR Abdomen, 2 Views and XR Chest, 1 View CLINICAL INDICATION: VOMITING, ABD PAIN TECHNIQUE: Frontal view of the chest, frontal view of the abdomen/pelvis and upright or decubitus view of the abdomen. COMPARISON: No relevant prior studies available. FINDINGS: LUNGS AND PLEURAL SPACES: Unremarkable. No consolidation. No pneumothorax. HEART: Unremarkable. No cardiomegaly. MEDIASTINUM: Unremarkable. Normal mediastinal contour. INTRAPERITONEAL SPACE: No free air. GASTROINTESTINAL TRACT: Fecal retention in the colon consistent with constipation. No dilation. BONES/JOINTS: Unremarkable. No acute fracture. RAD/Acute Abdomen Inc Chest IMPRESSION: Fecal retention in the colon consistent with constipation. Reading Location: [facility]
[2025-04-22 12:13] LABS: Magnesium 1.9 mg/dL (1.5-2.2); Phosphorus 1.7 mg/dL (2.7-4.5)
[2025-04-22 12:32] VITALS: BP 126/76; PULSE 62; RESP 16; O2SAT 100
[2025-04-22] MEDS: Potassium Chloride 10mEq/100mL 10 MEQ/100 ML IV.SOLN. 100 MEQ IV BOLUS (13:28)
[2025-04-22 13:59] VITALS: BP 138/80; PULSE 68; O2SAT 100
[2025-04-22 14:23] VITALS: BP 137/90; PULSE 69; RESP 16; TEMP 36.3; O2SAT 100
[2025-04-22 16:00] VITALS: BP 147/101; PULSE 71
== END 2025-04-22 16:09 | disposition home or self-care (01) ==
PROVIDERS: Emergency Provider Emergency Medicine; Visit Provider Emergency Medicine
DX: R11.2 Nausea with vomiting, unspecified (principal); R56.9 Unspecified convulsions; E83.39 Other disorders of phosphorus metabolism; R10.13 Epigastric pain; E87.6 Hypokalemia; Z79.899 Other long term (current) drug therapy; F17.290 Nicotine dependence, other tobacco product, uncomplicated
CPT/HCPCS: 74022; 83735; 84100; 85025; 96361; 96365; 96372; 96375; 99283; A4216

== ENCOUNTER → 2025-04-22 | Outpatient (CLI) | payer BC, SELFPAY ==
[2025-04-22 12:31] LABS: Ammonia 12.4 umol/L (16-60)
[2025-04-22 12:52] LABS: ALB/GLOB Ratio 1.7 RATIO (0.9-2.4); AST(SGOT) 18 U/L (<=37); Alanine Aminotransfer ALT/SGPT 21 U/L (<=46); Albumin, Serum 5.6 g/dL (3.5-5.0); Alkaline Phosphatase 99 U/L (40-129); Anion Gap 18 (5-15); BUN 14 mg/dL (4-19); BUN/Creat Ratio 13.3 RATIO (10-20); Carbon Dioxide 24.1 mmol/L (21.0-32.0); Chloride 92 mmol/L (98-108); Creatinine, Serum 1.08 mg/dL (0.70-1.20); EST Glomerular Filtration Rate 100 (>60); Globulin 3.2 g/dL (2.2-4.2); Glucose 107 mg/dL (70-99); Potassium 3.1 mmol/L (3.3-5.1); Protein, Total 8.8 g/dL (5.9-8.4); Sodium Level 134 mmol/L (133-145); Total Bilirubin 1.68 mg/dL (0.00-1.30)
[2025-04-25 11:08] LABS: KEPPRA (LEVETIRACETAM) 16.9 ug/mL (10.0-40.0)
== END | disposition home or self-care (01) ==
LOC: MTLAB 09:40
DX: E83.39 Other disorders of phosphorus metabolism (principal); E86.0 Dehydration; R11.2 Nausea with vomiting, unspecified; R10.13 Epigastric pain
CPT/HCPCS: 36415; 80053; 80177; 82140

== ENCOUNTER 2025-05-02 12:30 | Emergency (ER) | payer BC, SELFPAY ==
[2025-05-02 12:32] VITALS: BP 145/96; PULSE 72; RESP 16; TEMP 36.9; O2SAT 100; BMI 18.1
[2025-05-02 13:02] LABS: Absolute Lymphocyte Count 2.57 X10^3/uL (0.83-4.51); Absolute Neutrophil Count 2.2 X10^3/uL (2.0-7.7); Basophil# 0.05 X10^3/uL; Basophil% 0.9 % (0-1); Eosinophil# 0.08 X10^3/uL; Eosinophils% 1.5 % (0-5); Hematocrit 40.2 % (40-54); Hemoglobin 13.8 g/dL (13.0-16.5); Lymphocyte # 2.57 X10^3/ul (0.83-4.51); Lymphocyte % 47.9 % (19-41); Mean Corp Hgb Conc 34.3 g/dL (32-36); Mean Corpuscular Hgb 29.4 pg (27.0-32.0); Mean Corpuscular Volume 85.5 fL (80-94); Mean Platelet Vol. 9.2 fl (6.2-12.0); Monocyte# 0.43 X10^3/uL; NRBC Flagged by Analyzer 0 % (0-5); Neutrophil # 2.23 X10^3/uL (2.7-7.7); Neutrophil % 41.5 % (47-70); Platelet Count 283 K/mm3 (150-450); RBC Distribution Width CV 13.4 % (11.6-14.6); RBC Distribution Width SD 42.4 fl (35.1-43.9); White Blood Count 5.4 K/mm3 (4.4-11.0)
[2025-05-02 13:28] LABS: Alcohol, Blood (Medical)-Serum < 10.1 mg/dL (<=10.0); Anion Gap 13 (5-15); BUN 10 mg/dL (4-19); BUN/Creat Ratio 9.6 RATIO (10-20); Calcium,Total 10.4 mg/dL (7.6-11.0); Carbon Dioxide 26.7 mmol/L (21.0-32.0); Chloride 100 mmol/L (98-108); EST Glomerular Filtration Rate 108 (>60); Estimated Creatinine Clearance 95.71 ml/min (50-250); Glucose 109 mg/dL (70-99); Potassium 3.4 mmol/L (3.3-5.1); Sodium Level 139 mmol/L (133-145)
--- NOTE | 2025-05-02 13:38 | ED.VIS.CHEST ---
HPI History of Present Illness Chief Complaint: Mental Health Narrative Narrative: Patient is a 25-year-old male with past medical history of seizures, anxiety, marijuana use who presents to the emergency department from neurology via police for homicidal ideations. Patient states that these have been going on for as long as he can remember and he states that he thought these were normal. He states that he disclosed them during his visit and they called police to have brought here. Patient states he has no specific plan and no specific individual that he wants to harm. PFSH PFSH Medical History Seizure Wears glasses Anxiety Marijuana use Restless legs Smoker Home Medications ?Medication ?Instructions ?Recorded ?Last Taken ?Type idysbcj-bmyusugafmbds-npurgnhd 250 1 tab PO Q6H PRN pain 04/15/25 Unknown History mg-250 mg-65 mg tablet (Excedrin Extra Strength) famotidine 20 mg tablet (Pepcid) 20 mg PO BID #20 tabs 04/15/25 Unknown Rx ondansetron 4 mg disintegrating 4 mg PO Q6H PRN nausea and 04/15/25 Unknown Rx tablet vomiting #20 tabs sodium di- and 1 tab PO TID #21 tabs 04/15/25 Unknown Rx monophosphate-potassium phos monobasic 250 mg tablet (Phospha Neutral) levetiracetam 1,000 mg tablet 1,000 mg PO BID #60 tabs 04/22/25 Unknown Rx (Keppra) metoclopramide HCl 10 mg tablet 10 mg PO Q6H PRN nausea and 04/22/25 Unknown Rx vomiting #20 tabs pantoprazole 40 mg tablet,delayed 40 mg PO QDAY #30 tabs 04/23/25 Unknown Rx release Allergy/AdvReac Type Severity Reaction Status Date / Time No Known Allergies Allergy Verified 05/02/25 12:32 Family History Mother Autoimmune disease Father No problems noted. Surgical History No history of previous surgery Social History household members: spouse and children current occupational status: employed current occupation: maintenence pets and animals: Yes pets and animals: cat(s) and dog(s) Smoking Status: Current every day smoker tobacco type: e-cigarettes alcohol intake: never substance use type: marijuana caffeine: Yes Type: other Number of servings: 1 do you feel safe at home: Yes ROS ROS ED ROS Narrative Constitutional: Denies headache, fever, chills Eyes: Denies change in vision double vision blurry vision Cardiovascular: Denies chest pain Respiratory: Denies coughing wheezing shortness of breath Abdomen: Denies abdominal pain nausea vomit diarrhea : Denies urinary symptoms Neurological: Denies numbness, weakness, tingling Musculoskeletal: Denies back pain Skin: Denies rashes or lesions EXAM Physical Exam Narrative Exam Narrative: General: Patient lying in bed rest comfortably did not appear to be in acute distress Head: Atraumatic, normocephalic Eyes: PERRL bilaterally, EOMI bilaterally, no conjunctival injection noted Neck: Soft, supple, trachea midline Cardiovascular: Regular in rhythm Respiratory: Clear to auscultation bilaterally Abdomen: Soft, nondistended, nontender to palpation Extremities: +5/5 strength noted in the bilateral upper and lower extremities Neurological: Patient follow commands knew that he was at [facility] years 2024 Skin: Warm, dry, intact no rashes or lesions noted Const Vital Signs: 05/02/25 12:32 Temperature 98.4 F Temperature Source Temporal Pulse Rate 72 Respiratory Rate 16 Blood Pressure 145/96 H Blood Pressure Mean 112 Pulse Ox 100 Oxygen Delivery Method Room Air MDM MDM MDM Narrative Medical decision making narrative: Patient is a 25-year-old male who presented to the emergency department chief complaint of homicidal ideations. On the differential diagnose includes but only to anxiety, depression, homicidal ideation, suicidal ideation although he declines this, schizophrenia. Once workup is obtained reviewed he will be reevaluated. Patient CBC reviewed showed no evidence leukocytosis white blood count normal 5.4, he was 13.8, platelet count was 283. Patient sodium was 139, potassium normal 3.4, creatinine was 1. Patient's drug screen was presumptive positive for cannabis and opiates negative alcohol. Patient was value by social work and he was able to be safety plan. Once again this has been going on for years this is not a new acute event. Patient has no specific homicidal plan nor is he suicidal. Patient was advised to follow-up with the resources provided and return with worsening symptoms or concerns. All question concerns answered he is discharged home in stable condition. Lab Data Labs: Laboratory Results - last 24 hr 05/02/25 05/02/25 12:52 14:00 WBC 5.4 RBC 4.70 Hgb 13.8 Hct 40.2 MCV 85.5 MCH 29.4 MCHC 34.3 RDW Std Deviation 42.4 RDW Coeff of Lanette 13.4 Plt Count 283 MPV 9.2 Immature Gran % (Auto) 0.200 Neut % (Auto) 41.5 L Lymph % (Auto) 47.9 H Warren % (Auto) 8.0 Eos % (Auto) 1.5 Baso % (Auto) 0.9 Absolute Neuts (auto) 2.2 Absolute Lymphs (auto) 2.57 Nucleated RBC % 0 Sodium 139 Potassium 3.4 Chloride 100 Carbon Dioxide 26.7 Anion Gap 13 BUN 10 Creatinine 1.00 Estim Creat Clear Calc 95.71 Est GFR (MDRD) Non-Af 108 BUN/Creatinine Ratio 9.6 L Glucose 109 H Calcium 10.4 Urine Opiates Screen PRESUMPTIVE POSITIVE U Buprenorphine Qual NEGATIVE Ur Oxycodone Screen NEGATIVE Urine Methadone Screen NEGATIVE Urine Fentanyl Screen NEGATIVE Ur Barbiturates Screen NEGATIVE Ur Phencyclidine Scrn NEGATIVE Ur Amphetamines Screen NEGATIVE U Benzodiazepines Scrn NEGATIVE Urine Cocaine Screen NEGATIVE U Cannabinoids Screen PRESUMPTIVE POSITIVE Ethyl Alcohol < 10.1 Discharge Plan Triage Chief Complaint: Mental Health ED Provider: Walt Hi Dx/Rx/DC Orders Clinical Impression: History of homicidal ideation Prescriptions: No Action levetiracetam [Keppra] 1,000 mg tablet 1,000 mg PO BID Qty: 60 1RF pantoprazole 40 mg tablet,delayed release (DR/EC) 40 mg PO QDAY Qty: 30 2RF Excedrin Extra Strength 250-250-65 mg tablet 1 tab PO Q6H PRN (Reason: pain) ondansetron 4 mg tablet,disintegrating 4 mg PO Q6H PRN (Reason: nausea and vomiting) Qty: 20 0RF Phospha 250 Neutral 250 mg tablet 1 tab PO TID Qty: 21 0RF famotidine [Pepcid] 20 mg tablet 20 mg PO BID Qty: 20 0RF metoclopramide HCl 10 mg tablet 10 mg PO Q6H PRN (Reason: nausea and vomiting) Qty: 20 0RF Primary Care Provider: Care Physician,No Primary Referrals: Care Physician,No Primary [Primary Care Provider] - Print Language: [place] Disposition Disposition: Home, Self Care
[2025-05-02 15:17] LABS: Amphetamine Urine NEGATIVE (<1000 ng/mL); Barbiturate Urine NEGATIVE (< 200 ng/mL); Benzodiazepine Urine NEGATIVE (< 200 ng/mL); Buprenorphine Urine NEGATIVE (< 200 ng/mL); Cocaine Urine NEGATIVE (< 300 ng/mL); Fentanyl, Urine NEGATIVE; Methadone Urine NEGATIVE (< 300 ng/mL); Opiates Urine PRESUMPTIVE POSITIVE (< 300 ng/mL); Oxycodone, Urine NEGATIVE (< 100 ng/mL); PCP Urine NEGATIVE (< 25 ng/mL); THC Urine PRESUMPTIVE POSITIVE (< 50 ng/mL)
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
[2025-05-02 16:36] VITALS: BP 110/80; PULSE 66; RESP 16; TEMP 36.6; O2SAT 100
--- NOTE | 2025-05-02 17:21 | CM.ED ---
Social work Spoke with Dr. Hi who agreed with safety plan due to patient not having acute homicidal plan, intent, or attempts as well as patient not having any current or historical suicidal thoughts, intent, plans, or attempts. SW updated patient and completed safety plan with patient. Patient was willing to safety plan and get patient's father, Caio, involved via phone call; Caio appeared to be supportive of patient via speaker phone (ph: [phone]). Due to patient's inability to drive currently due to seizures, patient was not set up with an intake appointment for counseling. Patient was given resources for local counseling agencies as well as [facility]. Patient was also given resources of coping skills, grounding exercises, gun locks, [facility] Behavioral Health programming, [facility] Provider Directory, and [facility] information (due to no PCP). Patient was encouraged to take patient's mental health needs seriously and reengage in mental health services provided; patient expressed understanding and knowing patient needed to reengage. Of note, patient did state not realizing how seriously people would take patient's admission of homicidal thoughts. Patient stated understanding that people's safety, including patient's safety, is important. Patient texted patient's father for a ride after patient's father got off work. Patient denied further needs at this time. Taniya Jimenez, MECHANICAL STRIPER, PRODUCTION TEAM MANAGER
--- NOTE | 2025-05-03 11:50 | CM.ED ---
Social Work pack mule worker made a 24 hour call to patient per Crisis Safety Plan protocol. Patient confirmed he is still free from having any specific thoughts of homicidal ideation including any intent towards anyone specific, denied any plans/current thoughts. Patient confirmed that his firearms are stored in a locked and secure place and denied any additional concerns/needs at this time. Patient reported feeling safe for himself and for others. pack mule worker encouraged patient to call 911 or return to the ED if ever feeling suicidal or homicidal which patient agreed to do. Seda Ackerman, COMPUTER DRAFTER, ACCESS REGISTRAR
== END 2025-05-02 16:37 | disposition home or self-care (01) ==
PROVIDERS: Emergency Provider Emergency Medicine; Visit Provider Emergency Medicine
DX: R45.850 Homicidal ideations (principal); F12.90 Cannabis use, unspecified, uncomplicated; F17.290 Nicotine dependence, other tobacco product, uncomplicated; Z79.899 Other long term (current) drug therapy
CPT/HCPCS: 80048; 80307; 82077; 85025; 99284

== ENCOUNTER → 2025-09-04 | Outpatient (CLI) | payer BC, SELFPAY ==
[2025-09-04 19:23] LABS: AST(SGOT) 17 U/L (<=37); Alanine Aminotransfer ALT/SGPT 13 U/L (<=46); Albumin, Serum 5.0 g/dL (3.5-5.0); Alkaline Phosphatase 80 U/L (40-129); Anion Gap 12 (5-15); BUN 14 mg/dL (4-19); BUN/Creat Ratio 16.1 RATIO (10-20); Calcium,Total 10.0 mg/dL (7.6-11.0); Carbon Dioxide 25.5 mmol/L (21.0-32.0); Chloride 107 mmol/L (98-108); Globulin 2.8 g/dL (2.2-4.2); Glucose 94 mg/dL (70-99); Potassium 3.6 mmol/L (3.3-5.1)
== END | disposition home or self-care (01) ==
LOC: MTLAB 14:13
DX: E46 Unspecified protein-calorie malnutrition (principal); G40.909 Epilepsy, unspecified, not intractable, without status epilepticus
CPT/HCPCS: 36415; 80053